=== PATIENT | female | born 1965 | race Caucasian/White ===

== ENCOUNTER 2017-12-07 06:01 | Inpatient (IN) | payer SELFPAY, MEDICAID ==
[2017-12-07] MEDS: GASTROGRAFIN SOLUTION 30ML PO ×2 (08:01→08:31)
[2017-12-07] MEDS: NS 1,000 ML IV ×2 (08:09→08:45)
[2017-12-07] MEDS: KETOROLAC 30 MG/ML VIAL (J1885) IV (08:09)
[2017-12-07] MEDS: ONDANSETRON 4MG/2ML VIAL (J2405) IV ×3 (08:09→23:10)
[2017-12-07 08:21] LABS: BASO % 0.2 % (0.0-1.0); EOS % 0.3 % (0.0-3.0); HEMATOCRIT 41.5 % (36.0-47.0); IMMATURE GRANULOCYTE % 0.4 % (0-3.0); LYMPH # 1.3 10^3/uL (1.5-4.5); LYMPH % 9.1 % (24.0-44.0); MEAN CORPUSCULAR HEMOGLOBIN 33.9 pg (27.0-33.0); MEAN CORPUSCULAR HGB CONC 36.1 g/dl (32.0-36.5); MEAN CORPUSCULAR VOLUME 93.9 fl (80.0-96.0); MONO # 0.9 10^3/uL (0.0-0.8); MONO % 5.9 % (0.0-5.0); NEUTROPHILS # 12.3 10^3/uL (1.8-7.7); NEUTROPHILS % 84.1 % (36.0-66.0); PLATELET COUNT, AUTOMATED 271 10^3/uL (150-450); RED BLOOD COUNT 4.42 10^6/uL (4.00-5.40); RED CELL DISTRIBUTION WIDTH 12.7 % (11.5-14.5); WHITE BLOOD COUNT 14.6 10^3/uL (4.0-10.0)
[2017-12-07 08:50] LABS: LACTIC ACID SEPSIS PROTOCOL 1.2 MMOL/L (0.4-2.0)
[2017-12-07 08:51] LABS: ALBUMIN 3.5 GM/DL (3.2-5.2); ALKALINE PHOSPHATASE 118 U/L (45-117); AMYLASE 184 U/L (25-115); ANION GAP 9 MEQ/L (8-16); AST/SGOT 50 U/L (7-37); BILIRUBIN,TOTAL 0.7 MG/DL (0.2-1.0); BLOOD UREA NITROGEN 7 MG/DL (7-18); C REACTIVE PROTEIN QUANTITATIV 2.42 MG/DL (0.00-0.30); CALCIUM LEVEL 8.6 MG/DL (8.5-10.1); CARBON DIOXIDE LEVEL 24 MEQ/L (21-32); CHLORIDE LEVEL 101 MEQ/L (98-107); CPK CREATINE PHOSPHOKINASE 101 U/L (26-192); CREATININE FOR GFR 0.56 MG/DL (0.55-1.30); GLOMERULAR FILTRATION RATE > 60.0 (>51); GLUCOSE, FASTING 135 MG/DL (70-100); LIPASE 3750 U/L (73-393); POTASSIUM SERUM 3.8 MEQ/L (3.5-5.1); SODIUM LEVEL 134 MEQ/L (136-145); TROPONIN I < 0.02 NG/ML (< 0.10)
[2017-12-07] MEDS ORDERED: ISOVUE-370 76% 100ML VIAL (Q9967) As Ordered (08:56)
[2017-12-07 09:17] LABS: ALT/SGPT 52 U/L (12-78); CK-MB VALUE MASS 1.8 NG/ML (<3.6); MAGNESIUM LEVEL 1.8 MG/DL (1.8-2.4); MB/CK RELATIVE INDEX 1.78 (< OR =4)
[2017-12-07] MEDS: METOCLOPRAMIDE INJ 10MG/2ML VIAL (J2765) IV (10:03)
[2017-12-07] MEDS: MORPHINE 4 MG/ML 1ML VIAL/SYRINGE (J2270) IV ×6 (10:07→23:10)
[2017-12-07] MEDS ORDERED: MORPHINE 4 MG/ML 1ML VIAL/SYRINGE (J2270) IV ×3 (10:15→13:30)
[2017-12-07 10:28] LABS: APPEARANCE, URINE CLEAR (CLEAR); BACTERIA, URINE AUTO NEGATIVE (NEGATIVE); BILIRUBIN, URINE AUTO NEGATIVE (NEGATIVE); BLOOD, URINE BLOOD 1+ (NEGATIVE); COLOR, URINE YELLOW (YELLOW); GLUCOSE, URINE (UA) AUTO 1+ mg/dL (NEGATIVE); KETONE, URINE AUTO 1+ mg/dL (NEGATIVE); LEUKOCYTE ESTERASE, URINE AUTO NEGATIVE (NEGATIVE); MUCUS, URINE SMALL (NEGATIVE); NITRITE, URINE AUTO NEGATIVE (NEGATIVE); PROTEIN, URINE AUTO NEGATIVE (NEGATIVE); RBC, URINE AUTO 1 /HPF (0-3); SPECIFIC GRAVITY URINE AUTO 1.029 (1.002-1.035); SQUAMOUS EPITHELIAL CELL UR AU 2 /HPF (0-6); UROBILINOGEN, URINE AUTO 0.2 mg/dL (0.0-2.0); WBC, URINE AUTO 1 /HPF (0-3)
[2017-12-07] MEDS ORDERED: LORazepam 2 MG TAB PO (11:00)
[2017-12-07] MEDS: NICOTINE 21MG/24HR 1 EA TRANSDERMAL TD (11:39)
[2017-12-07] MEDS: THIAMINE 100 MG TAB PO ×2 (11:39→21:02)
[2017-12-07] MEDS: MULTIVITAMINS/MINERALS THERAP 1 TAB PO (11:39)
[2017-12-07] MEDS: FOLIC ACID 1 MG TAB PO (11:39)
[2017-12-07] MEDS: PANTOPRAZOLE 40MG INJ (PROTONIX) (C9113) IV (11:40)
[2017-12-07] MEDS: ENOXAPARIN 40 MG/0.4 ML SYRINGE (J1650) SC (11:40)
[2017-12-07] MEDS: D5W/0.9% SODIUM CHLORIDE 1,000 ML IV ×2 (11:41→23:11)
[2017-12-08] MEDS: MORPHINE 4 MG/ML 1ML VIAL/SYRINGE (J2270) IV ×6 (02:42→21:34)
[2017-12-08] MEDS: ONDANSETRON 4MG/2ML VIAL (J2405) IV ×3 (05:39→21:34)
[2017-12-08 06:24] LABS: BASO % 0.2 % (0.0-1.0); EOS # 0.1 10^3/uL (0.0-0.50); EOS % 0.3 % (0.0-3.0); HEMATOCRIT 36.3 % (36.0-47.0); IMMATURE GRANULOCYTE % 0.6 % (0-3.0); LYMPH # 1.5 10^3/uL (1.5-4.5); LYMPH % 9.5 % (24.0-44.0); MEAN CORPUSCULAR HEMOGLOBIN 33.5 pg (27.0-33.0); MEAN CORPUSCULAR VOLUME 95.8 fl (80.0-96.0); MONO % 6.3 % (0.0-5.0); NEUTROPHILS # 13.1 10^3/uL (1.8-7.7); NEUTROPHILS % 83.1 % (36.0-66.0); PLATELET COUNT, AUTOMATED 203 10^3/uL (150-450); RED BLOOD COUNT 3.79 10^6/uL (4.00-5.40); RED CELL DISTRIBUTION WIDTH 13.3 % (11.5-14.5); WHITE BLOOD COUNT 15.8 10^3/uL (4.0-10.0)
[2017-12-08 06:29] LABS: HEMOGLOBIN 12.7 g/dl (12.0-15.5)
[2017-12-08 06:47] LABS: AMYLASE 210 U/L (25-115); ANION GAP 8 MEQ/L (8-16); BLOOD UREA NITROGEN 6 MG/DL (7-18); CALCIUM LEVEL 7.8 MG/DL (8.5-10.1); CARBON DIOXIDE LEVEL 26 MEQ/L (21-32); CHLORIDE LEVEL 107 MEQ/L (98-107); CREATININE FOR GFR 0.56 MG/DL (0.55-1.30); GLOMERULAR FILTRATION RATE > 60.0 (>51); GLUCOSE, FASTING 105 MG/DL (70-100); LIPASE 2580 U/L (73-393); POTASSIUM SERUM 3.2 MEQ/L (3.5-5.1); SODIUM LEVEL 141 MEQ/L (136-145)
[2017-12-08] MEDS: MULTIVITAMINS/MINERALS THERAP 1 TAB PO (09:15)
[2017-12-08] MEDS: FOLIC ACID 1 MG TAB PO (09:15)
[2017-12-08] MEDS: THIAMINE 100 MG TAB PO ×2 (09:15→20:31)
[2017-12-08] MEDS: NICOTINE 21MG/24HR 1 EA TRANSDERMAL TD (09:17)
[2017-12-08] MEDS: ENOXAPARIN 40 MG/0.4 ML SYRINGE (J1650) SC (09:17)
[2017-12-08] MEDS: KCL 40MEQ IN D5/NS 1000ML 1,000 ML IV ×2 (11:19→18:26)
[2017-12-08] MEDS: PANTOPRAZOLE 40MG INJ (PROTONIX) (C9113) IV (11:19)
[2017-12-08] MEDS ORDERED: MORPHINE 4 MG/ML 1ML VIAL/SYRINGE (J2270) IV (11:30)
[2017-12-08] MEDS ORDERED: ACETAMINOPHEN 500 MG TAB PO (12:30)
[2017-12-09] MEDS: KCL 40MEQ IN D5/NS 1000ML 1,000 ML IV ×3 (00:45→17:52)
[2017-12-09] MEDS: ONDANSETRON 4MG/2ML VIAL (J2405) IV (03:46)
[2017-12-09] MEDS: MORPHINE 4 MG/ML 1ML VIAL/SYRINGE (J2270) IV ×3 (03:46→21:20)
[2017-12-09 06:07] LABS: BASO % 0.3 % (0.0-1.0); EOS # 0.2 10^3/uL (0.0-0.50); EOS % 1.1 % (0.0-3.0); HEMATOCRIT 32.3 % (36.0-47.0); HEMOGLOBIN 10.9 g/dl (12.0-15.5); IMMATURE GRANULOCYTE % 0.4 % (0-3.0); LYMPH # 1.9 10^3/uL (1.5-4.5); LYMPH % 13.1 % (24.0-44.0); MEAN CORPUSCULAR HEMOGLOBIN 34.2 pg (27.0-33.0); MEAN CORPUSCULAR HGB CONC 33.7 g/dl (32.0-36.5); MEAN CORPUSCULAR VOLUME 101.3 fl (80.0-96.0); MONO % 7.2 % (0.0-5.0); NEUTROPHILS # 11.1 10^3/uL (1.8-7.7); NEUTROPHILS % 77.9 % (36.0-66.0); PLATELET COUNT, AUTOMATED 161 10^3/uL (150-450); RED BLOOD COUNT 3.19 10^6/uL (4.00-5.40); RED CELL DISTRIBUTION WIDTH 13.6 % (11.5-14.5); WHITE BLOOD COUNT 14.3 10^3/uL (4.0-10.0)
[2017-12-09 06:30] LABS: ANION GAP 5 MEQ/L (8-16); BLOOD UREA NITROGEN 5 MG/DL (7-18); CARBON DIOXIDE LEVEL 25 MEQ/L (21-32); CHLORIDE LEVEL 111 MEQ/L (98-107); CREATININE FOR GFR 0.47 MG/DL (0.55-1.30); GLOMERULAR FILTRATION RATE > 60.0 (>51); GLUCOSE, FASTING 109 MG/DL (70-100); LIPASE 166 U/L (73-393); POTASSIUM SERUM 4.2 MEQ/L (3.5-5.1); SODIUM LEVEL 141 MEQ/L (136-145)
[2017-12-09] MEDS: NICOTINE 21MG/24HR 1 EA TRANSDERMAL TD (08:43)
[2017-12-09] MEDS: MULTIVITAMINS/MINERALS THERAP 1 TAB PO (08:44)
[2017-12-09] MEDS: ENOXAPARIN 40 MG/0.4 ML SYRINGE (J1650) SC (08:44)
[2017-12-09] MEDS: FOLIC ACID 1 MG TAB PO (08:44)
[2017-12-09] MEDS: THIAMINE 100 MG TAB PO ×2 (08:44→21:19)
[2017-12-09] MEDS: PANTOPRAZOLE 40MG INJ (PROTONIX) (C9113) IV (11:31)
[2017-12-09] MEDS: PERCOCET 5MG/325MG TAB PO ×2 (12:40→16:36)
[2017-12-10] MEDS: PERCOCET 5MG/325MG TAB PO ×3 (02:29→17:49)
[2017-12-10 06:26] LABS: BASO % 0.3 % (0.0-1.0); EOS # 0.2 10^3/uL (0.0-0.50); EOS % 1.7 % (0.0-3.0); HEMATOCRIT 32.2 % (36.0-47.0); HEMOGLOBIN 10.6 g/dl (12.0-15.5); IMMATURE GRANULOCYTE % 0.7 % (0-3.0); LYMPH # 1.7 10^3/uL (1.5-4.5); LYMPH % 13.4 % (24.0-44.0); MEAN CORPUSCULAR HEMOGLOBIN 33.2 pg (27.0-33.0); MEAN CORPUSCULAR HGB CONC 32.9 g/dl (32.0-36.5); MEAN CORPUSCULAR VOLUME 100.9 fl (80.0-96.0); MONO # 1.1 10^3/uL (0.0-0.8); MONO % 8.3 % (0.0-5.0); NEUTROPHILS # 9.6 10^3/uL (1.8-7.7); NEUTROPHILS % 75.6 % (36.0-66.0); PLATELET COUNT, AUTOMATED 191 10^3/uL (150-450); RED BLOOD COUNT 3.19 10^6/uL (4.00-5.40); RED CELL DISTRIBUTION WIDTH 13.8 % (11.5-14.5); WHITE BLOOD COUNT 12.7 10^3/uL (4.0-10.0)
[2017-12-10 06:45] LABS: ANION GAP 7 MEQ/L (8-16); BLOOD UREA NITROGEN 5 MG/DL (7-18); CALCIUM LEVEL 8.5 MG/DL (8.5-10.1); CARBON DIOXIDE LEVEL 22 MEQ/L (21-32); CHLORIDE LEVEL 112 MEQ/L (98-107); CREATININE FOR GFR 0.41 MG/DL (0.55-1.30); GLOMERULAR FILTRATION RATE > 60.0 (>51); GLUCOSE, FASTING 111 MG/DL (70-100); LIPASE 231 U/L (73-393); POTASSIUM SERUM 4.1 MEQ/L (3.5-5.1); SODIUM LEVEL 141 MEQ/L (136-145)
[2017-12-10] MEDS: KCL 40MEQ IN D5/NS 1000ML 1,000 ML IV (06:56)
[2017-12-10] MEDS: MULTIVITAMINS/MINERALS THERAP 1 TAB PO (08:22)
[2017-12-10] MEDS: ENOXAPARIN 40 MG/0.4 ML SYRINGE (J1650) SC (08:22)
[2017-12-10] MEDS: FOLIC ACID 1 MG TAB PO (08:22)
[2017-12-10] MEDS: NICOTINE 21MG/24HR 1 EA TRANSDERMAL TD (08:22)
[2017-12-10] MEDS: PANTOPRAZOLE 40MG INJ (PROTONIX) (C9113) IV (11:12)
[2017-12-10] MEDS: ALBUTEROL SULFATE 2.5 MG/0.5 ML INH NEB SOLN NEB (11:19)
[2017-12-10] MEDS: MORPHINE 4 MG/ML 1ML VIAL/SYRINGE (J2270) IV ×2 (13:42→22:27)
[2017-12-11] MEDS: PERCOCET 5MG/325MG TAB PO ×3 (06:29→19:18)
[2017-12-11 06:38] LABS: BASO % 0.4 % (0.0-1.0); EOS # 0.2 10^3/uL (0.0-0.50); HEMATOCRIT 29.7 % (36.0-47.0); HEMOGLOBIN 9.9 g/dl (12.0-15.5); IMMATURE GRANULOCYTE % 0.7 % (0-3.0); LYMPH # 1.3 10^3/uL (1.5-4.5); LYMPH % 13.3 % (24.0-44.0); MEAN CORPUSCULAR HEMOGLOBIN 33.4 pg (27.0-33.0); MEAN CORPUSCULAR HGB CONC 33.3 g/dl (32.0-36.5); MEAN CORPUSCULAR VOLUME 100.3 fl (80.0-96.0); MONO # 1.4 10^3/uL (0.0-0.8); MONO % 14.3 % (0.0-5.0); NEUTROPHILS # 6.5 10^3/uL (1.8-7.7); NEUTROPHILS % 69.3 % (36.0-66.0); PLATELET COUNT, AUTOMATED 242 10^3/uL (150-450); RED BLOOD COUNT 2.96 10^6/uL (4.00-5.40); RED CELL DISTRIBUTION WIDTH 13.8 % (11.5-14.5); WHITE BLOOD COUNT 9.4 10^3/uL (4.0-10.0)
[2017-12-11 06:54] LABS: ANION GAP 7 MEQ/L (8-16); BLOOD UREA NITROGEN 5 MG/DL (7-18); CALCIUM LEVEL 8.6 MG/DL (8.5-10.1); CARBON DIOXIDE LEVEL 26 MEQ/L (21-32); CHLORIDE LEVEL 108 MEQ/L (98-107); CREATININE FOR GFR 0.35 MG/DL (0.55-1.30); GLOMERULAR FILTRATION RATE > 60.0 (>51); GLUCOSE, FASTING 92 MG/DL (70-100); LIPASE 183 U/L (73-393); POTASSIUM SERUM 3.8 MEQ/L (3.5-5.1); SODIUM LEVEL 141 MEQ/L (136-145)
[2017-12-11] MEDS: ENOXAPARIN 40 MG/0.4 ML SYRINGE (J1650) SC (08:09)
[2017-12-11] MEDS: MULTIVITAMINS/MINERALS THERAP 1 TAB PO (08:09)
[2017-12-11] MEDS: FOLIC ACID 1 MG TAB PO (08:09)
[2017-12-11] MEDS: NICOTINE 21MG/24HR 1 EA TRANSDERMAL TD (10:02)
[2017-12-11] MEDS: PANTOPRAZOLE 40MG INJ (PROTONIX) (C9113) IV (10:47)
[2017-12-11] MEDS: SENOKOT S TAB PO ×2 (10:47→20:41)
[2017-12-11] MEDS: FUROSEMIDE 40 MG/4 ML VIAL (J1940) IV (10:48)
[2017-12-11] MEDS: ONDANSETRON 4MG/2ML VIAL (J2405) IV (20:41)
[2017-12-12] MEDS: PERCOCET 5MG/325MG TAB PO ×3 (05:54→19:45)
[2017-12-12 06:00] LABS: BASO % 0.4 % (0.0-1.0); EOS # 0.2 10^3/uL (0.0-0.50); HEMOGLOBIN 11.3 g/dl (12.0-15.5); IMMATURE GRANULOCYTE % 0.9 % (0-3.0); LYMPH # 1.3 10^3/uL (1.5-4.5); LYMPH % 14.6 % (24.0-44.0); MEAN CORPUSCULAR HEMOGLOBIN 33.2 pg (27.0-33.0); MEAN CORPUSCULAR HGB CONC 33.2 g/dl (32.0-36.5); MONO # 1.1 10^3/uL (0.0-0.8); MONO % 12.6 % (0.0-5.0); NEUTROPHILS # 6.3 10^3/uL (1.8-7.7); NEUTROPHILS % 69.5 % (36.0-66.0); PLATELET COUNT, AUTOMATED 333 10^3/uL (150-450); RED CELL DISTRIBUTION WIDTH 13.8 % (11.5-14.5)
[2017-12-12 06:19] LABS: ANION GAP 8 MEQ/L (8-16); BLOOD UREA NITROGEN 7 MG/DL (7-18); CALCIUM LEVEL 9.2 MG/DL (8.5-10.1); CARBON DIOXIDE LEVEL 30 MEQ/L (21-32); CHLORIDE LEVEL 102 MEQ/L (98-107); CREATININE FOR GFR 0.42 MG/DL (0.55-1.30); GLOMERULAR FILTRATION RATE > 60.0 (>51); GLUCOSE, FASTING 95 MG/DL (70-100); LIPASE 171 U/L (73-393); SODIUM LEVEL 140 MEQ/L (136-145)
[2017-12-12] MEDS: SENOKOT S TAB PO ×2 (08:22→20:39)
[2017-12-12] MEDS: MULTIVITAMINS/MINERALS THERAP 1 TAB PO (08:22)
[2017-12-12] MEDS: FOLIC ACID 1 MG TAB PO (08:22)
[2017-12-12] MEDS: NICOTINE 21MG/24HR 1 EA TRANSDERMAL TD (08:23)
[2017-12-12] MEDS: ENOXAPARIN 40 MG/0.4 ML SYRINGE (J1650) SC (08:23)
[2017-12-12] MEDS: PANTOPRAZOLE 40MG INJ (PROTONIX) (C9113) IV (11:07)
[2017-12-12] MEDS: POTASSIUM CHLORIDE 10 MEQ SR TABLET PO (13:13)
[2017-12-12] MEDS: ONDANSETRON 4MG/2ML VIAL (J2405) IV ×2 (13:14→19:44)
[2017-12-12] MEDS: ONDANSETRON 4 MG TAB (S0181) PO (20:39)
[2017-12-12 21:27] LABS: MAGNESIUM LEVEL 1.9 MG/DL (1.8-2.4)
[2017-12-12 21:27] LABS: POTASSIUM SERUM 3.7 MEQ/L (3.5-5.1)
[2017-12-13] MEDS: PERCOCET 5MG/325MG TAB PO ×2 (01:44→08:24)
[2017-12-13] MEDS: ONDANSETRON 4 MG TAB (S0181) PO ×2 (01:44→08:24)
[2017-12-13 06:48] LABS: BASO # 0.1 10^3/uL (0.0-0.2); BASO % 0.5 % (0.0-1.0); EOS # 0.2 10^3/uL (0.0-0.50); EOS % 2.2 % (0.0-3.0); HEMOGLOBIN 9.8 g/dl (12.0-15.5); IMMATURE GRANULOCYTE % 0.9 % (0-3.0); LYMPH # 1.7 10^3/uL (1.5-4.5); LYMPH % 18.1 % (24.0-44.0); MEAN CORPUSCULAR HGB CONC 33.8 g/dl (32.0-36.5); MEAN CORPUSCULAR VOLUME 97.6 fl (80.0-96.0); MONO # 1.1 10^3/uL (0.0-0.8); MONO % 11.8 % (0.0-5.0); NEUTROPHILS # 6.1 10^3/uL (1.8-7.7); NEUTROPHILS % 66.5 % (36.0-66.0); PLATELET COUNT, AUTOMATED 398 10^3/uL (150-450); RED BLOOD COUNT 2.97 10^6/uL (4.00-5.40); RED CELL DISTRIBUTION WIDTH 13.3 % (11.5-14.5); WHITE BLOOD COUNT 9.2 10^3/uL (4.0-10.0)
[2017-12-13 07:13] LABS: ANION GAP 7 MEQ/L (8-16); BLOOD UREA NITROGEN 11 MG/DL (7-18); CALCIUM LEVEL 8.9 MG/DL (8.5-10.1); CARBON DIOXIDE LEVEL 29 MEQ/L (21-32); CHLORIDE LEVEL 103 MEQ/L (98-107); CREATININE FOR GFR 0.39 MG/DL (0.55-1.30); GLOMERULAR FILTRATION RATE > 60.0 (>51); GLUCOSE, FASTING 107 MG/DL (70-100); LIPASE 199 U/L (73-393); POTASSIUM SERUM 3.4 MEQ/L (3.5-5.1); SODIUM LEVEL 139 MEQ/L (136-145)
[2017-12-13] MEDS: SENOKOT S TAB PO (08:23)
[2017-12-13] MEDS: NICOTINE 21MG/24HR 1 EA TRANSDERMAL TD (08:23)
[2017-12-13] MEDS: POTASSIUM CHLORIDE 10 MEQ SR TABLET PO (08:24)
[2017-12-13] MEDS: FOLIC ACID 1 MG TAB PO (08:24)
[2017-12-13] MEDS: MULTIVITAMINS/MINERALS THERAP 1 TAB PO (08:24)
[2017-12-13] MEDS: ENOXAPARIN 40 MG/0.4 ML SYRINGE (J1650) SC (08:25)
== END 2017-12-13 09:30 | disposition home or self-care (01) | DRG 282 ==
LOC: M MS4PR 12-12 20:20 → M ED 06:01 → M ED INP 10:15 → M PED 11:06 → M MSPAV 14:16
DX: K85.20 Alcohol induced acute pancreatitis without necrosis or infection (principal); F17.200 Nicotine dependence, unspecified, uncomplicated

== ENCOUNTER 2018-09-03 06:46 | Inpatient (IN) | payer OTHER, SELFPAY ==
[~2018-09-03] VITALS: Ht 167.6 cm; Wt 66.6 kg
[~2018-09-03 06:46] MED LIST: IBUP-1114 PO; NICO21PAT TD; PERCOCET PO
[2018-09-03] MEDS ORDERED: LOPE2CAP PO (06:55)
[2018-09-03] MEDS ORDERED: ONDANSETRON 4MG/2ML VIAL (J2405) IV ONE (07:15)
[2018-09-03] MEDS ORDERED: KETOROLAC 30 MG/ML VIAL (J1885) IV ONE (07:15)
[2018-09-03] MEDS ORDERED: NS 1,000 ML IV ONE (07:15)
[2018-09-03 07:36] LABS: BASO # 0.1 10^3/uL (0.0-0.2); BASO % 0.4 % (0.0-1.0); EOS # 0.1 10^3/uL (0.0-0.50); EOS % 0.9 % (0.0-3.0); HEMATOCRIT 44.2 % (36.0-47.0); HEMOGLOBIN 15.2 g/dl (12.0-15.5); LYMPH # 1.7 10^3/uL (1.5-4.5); LYMPH % 10.5 % (24.0-44.0); MEAN CORPUSCULAR HEMOGLOBIN 32.5 pg (27.0-33.0); MEAN CORPUSCULAR HGB CONC 34.4 g/dl (32.0-36.5); MEAN CORPUSCULAR VOLUME 94.4 fl (80.0-96.0); MONO # 0.9 10^3/uL (0.0-0.8); MONO % 5.4 % (0.0-5.0); NEUTROPHILS # 13.2 10^3/uL (1.8-7.7); NEUTROPHILS % 82.4 % (36.0-66.0); PLATELET COUNT, AUTOMATED 347 10^3/uL (150-450); RED BLOOD COUNT 4.68 10^6/uL (4.00-5.40)
[2018-09-03 08:02] LABS: ALBUMIN 4.1 GM/DL (3.2-5.2); ALT/SGPT 35 U/L (12-78); AMYLASE 211 U/L (25-115); BILIRUBIN,DIRECT 0.1 MG/DL (0.0-0.2); BILIRUBIN,TOTAL 0.7 MG/DL (0.2-1.0); BLOOD UREA NITROGEN 12 MG/DL (7-18); CALCIUM LEVEL 9.2 MG/DL (8.5-10.1); CARBON DIOXIDE LEVEL 24 MEQ/L (21-32); CHLORIDE LEVEL 104 MEQ/L (98-107); GLOMERULAR FILTRATION RATE > 60.0 (>51); GLUCOSE, FASTING 120 MG/DL (70-100); LIPASE 2058 U/L (73-393); POTASSIUM SERUM 4.1 MEQ/L (3.5-5.1); SODIUM LEVEL 136 MEQ/L (136-145); TOTAL PROTEIN 8.1 GM/DL (6.4-8.2)
[2018-09-03] MEDS ORDERED: ISOVUE-370 76% 100ML VIAL (Q9967) As Ordered ONE (08:16)
[2018-09-03] MEDS ORDERED: MORPHINE 2 MG/ML 1ML SYRINGE (J2270) IV ONE (09:15)
--- NOTE | 2018-09-03 09:36 | REP ---
CT ABDOMEN AND PELVIS WITH IV CONTRAST: TECHNIQUE: Axial contrast enhanced images from the lung bases to the pubic symphysis using 100 mL Isovue 370 intravenous contrast material with multiplanar reformations. COMPARISON: 12/07/2017 In the visualized lung bases there is mild bibasilar atelectasis/infiltrate. There is a tiny calcified granuloma in the left lower lobe. The liver, spleen, and adrenals are unremarkable in appearance. Subcentimeter cyst is seen in the right kidney. There is no hydronephrosis. Diffuse mild inflammatory changes are seen surrounding the pancreas compatible with pancreatitis. Common bile duct measures 7 mm at the upper limits of normal. The pancreatic duct does not appear to be dilated. Rounded low density structure posterior to the body of the pancreas measures 2.3 cm in diameter slightly increased in size since prior study when it was 2 cm likely representing a complex pseudocyst. There is no abdominal aortic aneurysm with mild scattered atherosclerotic calcification. I see no adenopathy. There is no free air or significant ascites. No bowel abnormality is seen. There is no evidence of appendicitis. No pelvis mass is seen. Urinary bladder is not well distended and not well evaluated. IMPRESSION: Findings compatible with pancreatitis. No free air and no significant ascites. Rounded hypodense structure posterior to the body of the pancreas has slightly increased in size since 12/07/2017, 2.3 cm in diameter, likely representing a complex pseudocyst. Mild infiltrate/atelectasis in each lung base. Electronically Signed by Ismael Sampson MD 09/03/2018 04:21 P
[2018-09-03] MEDS: NS 1,000 ML IV SCH ×4 (10:07→23:21)
[2018-09-03] MEDS ORDERED: LORazepam 2 MG TAB PO PRN (10:15)
[2018-09-03] MEDS: MULTIVITAMINS/MINERALS THERAP 1 TAB PO SCH (11:11)
[2018-09-03] MEDS: FOLIC ACID 1 MG TAB PO SCH (11:11)
[2018-09-03] MEDS: THIAMINE 100 MG TAB PO SCH (11:11)
[2018-09-03 11:40] VITALS: BP 163/80
[2018-09-03] MEDS ORDERED: PROCHLORPERAZINE 10 MG/2 ML VIAL (J0780) IV PRN (12:00)
[2018-09-03] MEDS: MORPHINE 4 MG/ML 1ML VIAL/SYRINGE (J2270) IV PRN ×6 (12:02→23:21)
[2018-09-03] MEDS ORDERED: OXAZEPAM 15 MG CAP PO SCH (14:00)
[2018-09-03 14:25] VITALS: BP 148/79
[2018-09-03 14:36] VITALS: BP 148/79
[2018-09-03] MEDS ORDERED: NYSTATIN 500,000 U/5 ML SUSP UDC SSP PRN (14:45)
--- NOTE | 2018-09-03 14:54 | HPEPDOC ---
[facility] Medical History & Physical Date of Admission Sep 03, 2018 Attending Physician: DION KRISHNAMURTHY MD History and Physical CHIEF COMPLAINT: Nausea, Vomiting, abdominal pain HISTORY OF PRESENT ILLNESS: Patient is a 53 year old female with a past medical history significant for alcohol abuse, tobacco abuse, and history of panc reatitis who presented to the [facility] emergency department with complaint of nausea, vomiting and abdominal pain over the past 48 hours. Patient stated that on Monday08/31/2018 she had drank a bottle of wine. She stated that after doing do she began to develop some abdominal pain. She stated that at first it was manageable however continued to worsen. The patient states that she has had pancreatitis in the past and felt this was similar to her past experiences with pancreatitis. Patient stopped eating food as she had hoped that this would make the pain subside. Unfortunately, her pain continued and worsened. Today she states that she can no get comfortable. She states that the pain makes her nauseas and unable to eat. For this reason she felt she should go to the ER. In the ER, the patient received Zofran for her nausea and morphine for her pain. She recieved blood chemistries which demonstrated a lipase of 2057. In addition, she received a CT abdomen which demonstrated findings consistent with pancreatitis. In addition, she was found to have a structure by the body of the pancreas that is consistent with a complex pseudocyst. The patient was subsequently admitted to hospitalist service for further management. PAST MEDICAL HISTORY: 1. Hx of Pancreatitis 2. Alcoholism 3. Tobacco Abuse 4. History of IV drug use PAST SURGICAL HISTORY: None SOCIAL HISTORY: Patient currently lives with her sister. She is a smoker. She smokes approximately 1 pack a day for the past 40 years. She has a history of alcohol abuse with binge drinking. She is a former IV drug user but states she has not used in over 13 years. She currently works for [employer]. She denies a [place] sick contacts or recent travel FAMILY HISTORY: Patients mother has a history of diabetes and from a myocardial infarction at the age of 62. The patients father is currently living and is an alcoholic. She has not been in contact with her father for sometime and does not know his family history ALLERGIES: Please see below. REVIEW OF SYSTEMS: CONSTITUTIONAL: Denies fevers, chills, unintentional weightloss or weightgain HEENT: Admits to cough and sputum production. Denies sore throat or dysphagia CARDIOVASCULAR: Denies chest pain, palpitations or feelings of the heart racing RESPIRATORY: Admits to cough. Denies shortness of breath. Denies hemoptysis GASTROINTESTINAL: Admits to abdominal pain 10 located LUQ, RUQ, and epigastric. Admits to diarrhea 1 week ago. Denies bloody stool. GENITOURINARY: Denies dysuria or increased frequency SKIN: Denies rashes or lesions MUSCULOSKELETAL: Denies musculoskeletal pain NEUROLOGICAL: Denies changes in gait or balance PSYCHIATRIC: Denies depression or anxiety HEMATOLOGIC/LYMPHATIC: Denies easy bruising or bleeding HOME MEDICATIONS: Please see below. PHYSICAL EXAMINATION: VITAL SIGNS: Temperature 97.4, pulse 71, respiratory rate 20, blood pressure 148/79, pulse oximetry 100% on room air. GENERAL APPEARANCE: Patient is awake, alert, and oriented. She is standing in exam room holding her stomach. She appears in no acute distress although uncomfortable HEENT: Atraumatic normocephalic. Eyes are nonicteric. Trachea is midline. Dentition is poor. Upper dentures in place. White patches present on patients tongue. Reddened areas with scraping with tongue depressor CARDIOVASCULAR: Normal S1, S2. Regular rate and rhythm. No clicks rubs, or murmurs appreciated LUNGS: Clear vesicular lung sounds bilaterally. Good respiratory effort. Slightly prolonged expiratory phase. No wheezes, rhonci, or rales ABDOMEN: Soft, nondistended. Tenderness to palpation in LUQ, RUQ, and epigastric region. No rebound tenderness. Positive bowel sounds. No hernias or rashes EXTREMITIES: No edema. 2+ posterior tibial pulses and radial pulses bilaterally. NEUROLOGICAL: No focal neurological deficits PSYCHIATRIC: Mood and affect appear appropriate LABORATORY DATA: See below. IMAGING: CT ABDOMEN AND PELVIS WITH IV CONTRAST: TECHNIQUE: Axial contrast enhanced images from the lung bases to the pubic symphysis using 100 mL Isovue 370 intravenous contrast material with multiplanar reformations. COMPARISON: 12/07/2017 In the visualized lung bases there is mild bibasilar atelectasis/infiltrate. There is a tiny calcified granuloma in the left lower lobe. The liver, spleen, and adrenals are unremarkable in appearance. Subcentimeter cyst is seen in the right kidney. There is no hydronephrosis. Diffuse mild inflammatory changes are seen surrounding the pancreas compatible with pancreatitis. Common bile duct measures 7 mm at the upper limits of normal. The pancreatic duct does not appear to be dilated. Rounded low density structure posterior to the body of the pancreas measures 2.3 cm in diameter slightly increased in size since prior study when it was 2 cm likely representing a complex pseudocyst. There is no abdominal aortic aneurysm with mild scattered atherosclerotic calcification. I see no adenopathy. There is no free air or significant ascites. No bowel abnormality is seen. There is no evidence of appendicitis. No pelvis mass is seen. Urinary bladder is not well distended and not well evaluated. IMPRESSION: Findings compatible with pancreatitis. No free air and no significant ascites. Rounded hypodense structure posterior to the body of the pancreas has slightly increased in size since 12/07/2017, 2.3 cm in diameter, likely representing a complex pseudocyst. Mild infiltrate/atelectasis in each lung base. MICROBIOLOGY: Please see below. ASSESSMENT: patient is a 53 year old male with a past medical history significant for alcoholism, pancreatitis, and tobacco abuse who presented to the [facility] ER with complaint of abdominal pain, nausea, and vomiting after drinking a bottle of wine on Monday. Patient had developed the pain after drinking and has attempted to manage her pain by not eating. Her pain worsened and she presented to the [facility] ER where she was found to have an elevated lipase and CT imaging suggestive of acute pancreatits. She was admitted to hospitalist service for further management and care of her pancreatitis . PLAN: 1. Acute on chronic pancreatitis -Patient received CT imaging of the abdomen demonstrating likely pancreatitis. -Patient has been made NPO. -Zofran and Compazine for nausea -Morphine for pain control with plan to transition to PO when tolerating diet -CT imaging demonstrated a structure by the patients pancreas consistent with a complex pseudocyst. Patient will likely need follow-up imaging at intervals for longterm management 2. History of alcohol abuse -Patient is an alcoholic. She states that she does binge drink at time -Serax 10 mg TID. -CIWA protocol with Ativan prn protocol -Folic acid, thiamine, and multivitamins 3. History of Tobacco abuse -Patient is a current smoker. She smokes 1 pack a day for the past 40 years -Nicotine patch 21mg daily 4. DVT prophylaxis -Lovenox 40 Vital Signs Vital Signs Date Time Temp Pulse Resp B/P (MAP) Pulse Ox O2 Delivery O2 Flow Rate FiO2 09/03/18 14:10 22 09/03/18 11:40 74 163/80 09/03/18 11:40 96.4 98 09/03/18 06:47 Room Air Laboratory Data Labs 24H Laboratory Tests 2 09/03/18 07:23: Immature Granulocyte % (Auto) 0.4, White Blood Count 16.0H, Red Blood Count 4.68, Hemoglobin 15.2, Hematocrit 44.2, Mean Corpuscular Volume 94.4, Mean Corpuscular Hemoglobin 32.5, Mean Corpuscular Hemoglobin Concent 34.4, Red Cell Distribution Width 13.3, Platelet Count 347, Neutrophils (%) (Auto) 82.4H, Lymphocytes (%) (Auto) 10.5L, Monocytes (%) (Auto) 5.4H, Eosinophils (%) (Auto) 0.9, Basophils (%) (Auto) 0.4, Neutrophils # (Auto) 13.2H, Lymphocytes # (Auto) 1.7, Monocytes # (Auto) 0.9H, Eosinophils # (Auto) 0.1, Basophils # (Auto) 0.1, Nucleated Red Blood Cells % (auto) 0.0, Urine Color ANKIT, Urine Appearance CLOUDYH, Urine pH 5.0, Urine Specific [place] 1.028, Urine Protein 2+H, Urine Glucose (UA) NEGATIVE, Urine Ketones 2+H, Urine Blood 2+H, Urine Nitrite NEGATIVE, Urine Bilirubin 1+H, Urine Urobilinogen 2.0H, Urine Leukocyte Esterase 2+H, Urine WBC (Auto) 15H, Urine RBC (Auto) 5H, Urine Hyaline Casts (Auto) 2, Urine Bacteria (Auto) 1+H, Urine Squamous Epithelial Cells 7, Urine Transitional Epithelial Cells 1, Urine Mucus (Auto) MODERATE, Urine Sperm (Auto) , Anion Gap 8, Glomerular Filtration Rate > 60.0, Calcium Level 9.2, Aspartate Amino Transf (AST/SGOT) 28, Alanine Aminotransferase (ALT/SGPT) 35, Alkaline Phosphatase 110, Total Bilirubin 0.7, Direct Bilirubin 0.1, Total Protein 8.1, Albumin 4.1, Albumin/Globulin Ratio 1.03, Amylase Level 211H, Lipase 2058H CBC/BMP Laboratory Tests 09/03/18 07:23 Red Blood Count 4.68, Mean Corpuscular Volume 94.4, Mean Corpuscular Hemoglobin 32.5, Mean Corpuscular Hemoglobin Concent 34.4, Red Cell Distribution Width 13.3, Neutrophils (%) (Auto) 82.4 H, Lymphocytes (%) (Auto) 10.5 L, Monocytes (%) (Auto) 5.4 H, Eosinophils (%) (Auto) 0.9, Basophils (%) (Auto) 0.4, Neutrophils # (Auto) 13.2 H, Lymphocytes # (Auto) 1.7, Monocytes # (Auto) 0.9 H, Eosinophils # (Auto) 0.1, Basophils # (Auto) 0.1 Microbiology Microbiology 09/03/18 Urine Culture, Received Pending Home Medications Scheduled PRN Oxycodone HCl/Acetaminophen (Oxycodone-Acetaminophen 5-325) 1 Each Tablet, 1 TAB PO TIDP PRN for pain Allergies Coded Allergies: Penicillins (Verified Allergy, Intermediate, SWELLING OF TONGUE, 09/03/18) A-FIB/CHADSVASC A-FIB History Current/History of A-Fib/PAF?: No GME ATTESTATION GME ATTESTATION My faculty preceptor for this patient encounter was physically present during the encounter and was fully available. All aspects of the patient interview, examination, medical decision making process, and medical care plan development were reviewed and approved by the faculty preceptor. The faculty preceptor is aware and concurs with the plan as stated in the body of this note and will attest to such by his/her cosignature. ATTENDING NOTE I have reviewed the residents note and have personally examined the patient. I agree with the Residents physical examination and assessment and plan. ISHAAN GONZALEZ DO Sep 03, 2018 14:54 DION KRISHNAMURTHY MD September 08, 2018 17:23
[2018-09-03] MEDS: ONDANSETRON 4MG/2ML VIAL (J2405) IV PRN ×2 (15:01→21:12)
[2018-09-03] MEDS: OXAZEPAM 10 MG CAP PO SCH (21:13)
[2018-09-03 22:00] VITALS: BP 139/71
[2018-09-04] MEDS: MORPHINE 4 MG/ML 1ML VIAL/SYRINGE (J2270) IV PRN ×8 (01:49→19:54)
[2018-09-04] MEDS: ONDANSETRON 4MG/2ML VIAL (J2405) IV PRN ×2 (04:06→19:53)
[2018-09-04] MEDS: NS 1,000 ML IV SCH ×4 (04:12→21:40)
[2018-09-04 06:00] VITALS: BP 134/66
[2018-09-04] MEDS: OXAZEPAM 10 MG CAP PO SCH (06:14)
[2018-09-04 06:22] LABS: HEMATOCRIT 34.6 % (36.0-47.0); MEAN CORPUSCULAR HEMOGLOBIN 32.3 pg (27.0-33.0); MEAN CORPUSCULAR HGB CONC 34.4 g/dl (32.0-36.5); RED BLOOD COUNT 3.68 10^6/uL (4.00-5.40); WHITE BLOOD COUNT 16.8 10^3/uL (4.0-10.0)
[2018-09-04 06:29] LABS: HEMOGLOBIN 11.9 g/dl (12.0-15.5); PLATELET COUNT, AUTOMATED 241 10^3/uL (150-450)
[2018-09-04 06:53] LABS: BLOOD UREA NITROGEN 4 MG/DL (7-18); CALCIUM LEVEL 8.1 MG/DL (8.5-10.1); CARBON DIOXIDE LEVEL 23 MEQ/L (21-32); CHLORIDE LEVEL 106 MEQ/L (98-107); CREATININE FOR GFR 0.37 MG/DL (0.55-1.30); GLOMERULAR FILTRATION RATE > 60.0 (>51); GLUCOSE, FASTING 79 MG/DL (70-100); POTASSIUM SERUM 3.4 MEQ/L (3.5-5.1); SODIUM LEVEL 137 MEQ/L (136-145)
[2018-09-04 08:00] VITALS: BP 145/70
[2018-09-04] MEDS: ENOXAPARIN 40 MG/0.4 ML SYRINGE (J1650) SC SCH (08:31)
[2018-09-04] MEDS: THIAMINE 100 MG TAB PO SCH (08:34)
[2018-09-04] MEDS: NICOTINE 21MG/24HR 1 EA TRANSDERMAL TD SCH (08:34)
[2018-09-04] MEDS: FOLIC ACID 1 MG TAB PO SCH (08:34)
[2018-09-04] MEDS: MULTIVITAMINS/MINERALS THERAP 1 TAB PO SCH (08:34)
[2018-09-04] MEDS ORDERED: FLUBLOK(EGG FREE)(QUAD)INFLUENZA VACC 0.5ML SYRINGE (90682)18YRS&OLDER IM ONE (09:00)
[2018-09-04 10:06] LABS: MAGNESIUM LEVEL 1.8 MG/DL (1.8-2.4)
[2018-09-04] MEDS ORDERED: MAG SULF 1GM/100ML (MAG RUN) 1 GM in APPROPRIATE DILUENT 1 EA IV ONE (12:00)
[2018-09-04] MEDS: KCL 10MEQ/100ML SWI (KRUN) 10 MEQ in APPROPRIATE DILUENT 1 EA IV SCH ×2 (12:41→13:56)
--- NOTE | 2018-09-04 13:05 | IPNPDOC ---
Date Seen The patient was seen on 09/04/18. Progress Note SUBJECTIVE: Patient was seen and examined this morning. She states that she continues to have pain. She has been taking IV morphine Q2H. The patient states that she has an appetite however, her pain continues to persist. Her family had requested a pain medicine consult as they do not feel her pain is adequately controlled OBJECTIVE PHYSICAL EXAMINATION: VITAL SIGNS: Please see below. GENERAL: Awake alert and oriented. She does not appear in acute distress. She is sitting up in bed and conversive. She ambulates around the room at times during examination HEENT: Atraumatic normocephalic. Trachea is midline. Mucous membranes are pink and moist. Eyes are nonicteric. Dentition is fair CARDIOVASCULAR: Normal S1, S2. Regular rate and rhythm. No clicks, rubs, or murmurs RESPIRATORY: Clear vesicular lung sounds bilaterally with good respiratory effort. No wheezes, rhonci, or rales ABDOMINAL: Soft, nondistended. Tenderness to palpation of all 4 quadrants. No rebound tenderness or guarding EXTREMITIES: No edema. Full and equal pulses in bilateral lower extremities NEUROLOGICAL: No focal neurological deficits noted PSYCHOLOGICAL: Mood and affect appear appropriate for situation LABORATORY DATA, IMAGING STUDIES, MICROBIOLOGY: Please see below. DVT prophylaxis ordered?: YES ASSESSMENT AND PLAN: Patient is a 53 year old male with a past medical history significant for alcoholism, pancreatitis, and tobacco abuse who presented to the [facility] ER with complaint of abdominal pain, nausea, and vomiting after drinking a bottle of wine on Monday. Patient had developed the pain after drinking and has attempted to manage her pain by not eating. Her pain worsened and she presented to the [facility] ER where she was found to have an elevated lipase and CT imaging suggestive of acute pancreatits. She was admitted to hospitalist service for further management and care of her pancreatitis PROBLEMS: 1. Acute on Chronic Pancreatitis -Patient has a history of pancreatitis with current CT imaging and laboratory findings to support her diagnosis -Patient will be continued on NPO -Patient has Zofran and Compazine for nausea -Patient has been receiving Morphine 4mg Q2H for pain control. She states that her pain is not adequately controlled. The patient is able to ambulate without difficulty. She also expresses that she has an appetite. The patient does have a history of drug abuse in the past. Will plan to change lead to PO pain medication once patient can tolerate PO. At that point all IV medications will be discontinued. Pain management consult has been placed for further re commendations 2. History of Alcohol Abuse -Patient has a history of alcohol abuse. She states her last drink was on Monday before her pain started. She had been receiving Serax 10 mg TID. Patient has had no signs of withdrawl over the past 24 hours. Will discontinue at this time -Patient will be continued on CIWA protocol with Ativan PRN per protocol -Folic acid, Thiamine, and Multivitamins 3. History of Tobacco abuses -Patient is a current smoker. Smokes 1 pack per day for past 40 years -Continue Nicotine patch 21 mg daily A-FIB/CHADSVASC A-FIB History Current/History of A-Fib/PAF?: No VS, I&O, 24H, Fishbone Vital Signs/I&O Vital Signs Date Time Temp Pulse Resp B/P (MAP) Pulse Ox O2 Delivery O2 Flow Rate FiO2 09/04/18 11:29 18 09/04/18 08:00 82 145/70 09/04/18 06:00 97.8 96 09/03/18 06:47 Room Air I&O- Last 24 Hours up to 6 AM 09/04/18 06:00 Intake Total 3100 ml Output Total 2750 ml Balance 350 ml Laboratory Data 24H LABS Laboratory Tests 2 09/04/18 06:07: Nucleated Red Blood Cells % (auto) 0.0, Anion Gap 8, Glomerular Filtration Rate > 60.0, Blood Urea Nitrogen 4#L, Creatinine 0.37L, Sodium Level 137, Potassium Level 3.4L, Chloride Level 106, Carbon Dioxide Level 23, Calcium Level 8.1L, Magnesium Level 1.8 CBC/BMP Laboratory Tests 09/04/18 06:07 Red Blood Count 3.68 L, Mean Corpuscular Volume 94.0, Mean Corpuscular Hemoglobin 32.3, Mean Corpuscular Hemoglobin Concent 34.4, Red Cell Distribution Width 13.3, Calcium Level 8.1 L Microbiology Microbiology 09/03/18 Urine Culture - Final, Complete GME ATTESTATION GME ATTESTATION My faculty preceptor for this patient encounter was physically present during the encounter and was fully available. All aspects of the patient interview, examination, medical decision making process, and medical care plan development were reviewed and approved by the faculty preceptor. The faculty preceptor is aware and concurs with the plan as stated in the body of this note and will attest to such by his/her cosignature. ATTENDING NOTE I saw and evaluated the patient. I agree with the findings and plan of care as documented in the resident's note ISHAAN GONZALEZ DO Sep 04, 2018 13:05 VIRGIL MURPHY MD September 05, 2018 16:25
[2018-09-04 14:00] VITALS: BP 139/67
[2018-09-04 15:00] VITALS: BP 139/67
[2018-09-04] MEDS ORDERED: ACETAMINOPHEN TAB 650MG DOSE (2X325MG) PO ONE (16:30)
[2018-09-04 22:00] VITALS: BP 117/71
[2018-09-04 23:00] VITALS: BP 117/71
[2018-09-05] VITALS (7 sets, daily range): BP systolic 102–122; BP diastolic 55–65
[2018-09-05] MEDS: MORPHINE 4 MG/ML 1ML VIAL/SYRINGE (J2270) IV PRN ×4 (00:09→09:04)
[2018-09-05] MEDS: NS 1,000 ML IV SCH ×2 (02:23→06:43)
[2018-09-05] MEDS: ONDANSETRON 4MG/2ML VIAL (J2405) IV PRN (04:04)
[2018-09-05 06:17] LABS: HEMATOCRIT 30.8 % (36.0-47.0); HEMOGLOBIN 10.1 g/dl (12.0-15.5); MEAN CORPUSCULAR HEMOGLOBIN 32.2 pg (27.0-33.0); MEAN CORPUSCULAR HGB CONC 32.8 g/dl (32.0-36.5); MEAN CORPUSCULAR VOLUME 98.1 fl (80.0-96.0); PLATELET COUNT, AUTOMATED 219 10^3/uL (150-450); RED BLOOD COUNT 3.14 10^6/uL (4.00-5.40); WHITE BLOOD COUNT 14.3 10^3/uL (4.0-10.0)
[2018-09-05 07:56] LABS: BLOOD UREA NITROGEN 5 MG/DL (7-18); CALCIUM LEVEL 8.1 MG/DL (8.5-10.1); CARBON DIOXIDE LEVEL 19 MEQ/L (21-32); CHLORIDE LEVEL 108 MEQ/L (98-107); CREATININE FOR GFR 0.37 MG/DL (0.55-1.30); GLOMERULAR FILTRATION RATE > 60.0 (>51); GLUCOSE, FASTING 56 MG/DL (70-100); POTASSIUM SERUM 3.5 MEQ/L (3.5-5.1); SODIUM LEVEL 138 MEQ/L (136-145)
[2018-09-05] MEDS: NICOTINE 21MG/24HR 1 EA TRANSDERMAL TD SCH (09:03)
[2018-09-05] MEDS: ENOXAPARIN 40 MG/0.4 ML SYRINGE (J1650) SC SCH (09:03)
[2018-09-05] MEDS: MULTIVITAMINS/MINERALS THERAP 1 TAB PO SCH (09:04)
[2018-09-05] MEDS: FOLIC ACID 1 MG TAB PO SCH (09:04)
[2018-09-05] MEDS: THIAMINE 100 MG TAB PO SCH (09:04)
[2018-09-05 09:46] LABS: APPEARANCE, URINE CLEAR (CLEAR); BACTERIA, URINE AUTO NEGATIVE (NEGATIVE); BILIRUBIN, URINE AUTO NEGATIVE (NEGATIVE); BLOOD, URINE BLOOD 1+ (NEGATIVE); COLOR, URINE YELLOW (YELLOW); GLUCOSE, URINE (UA) AUTO NEGATIVE (NEGATIVE); KETONE, URINE AUTO 2+ mg/dL (NEGATIVE); LEUKOCYTE ESTERASE, URINE AUTO 1+ (NEGATIVE); MUCUS, URINE SMALL (NEGATIVE); NITRITE, URINE AUTO NEGATIVE (NEGATIVE); PROTEIN, URINE AUTO NEGATIVE (NEGATIVE); RBC, URINE AUTO 3 /HPF (0-3); SPECIFIC GRAVITY URINE AUTO 1.014 (1.002-1.035); SQUAMOUS EPITHELIAL CELL UR AU 1 /HPF (0-6); UROBILINOGEN, URINE AUTO 0.2 mg/dL (0.0-2.0); WBC, URINE AUTO 3 /HPF (0-3)
[2018-09-05] MEDS ORDERED: ONDANSETRON 4 MG ORAL DISINTEGRATING TAB (Q0162 PER 1MG) PO PRN (11:00)
--- NOTE | 2018-09-05 11:37 | IPNPDOC ---
Date Seen The patient was seen on 09/05/18. Progress Note SUBJECTIVE: Patient was seen and examined this morning. She has noted improvement in her pain and has stated that she has an appetite. She does complain of an occasional headache. She also states that she has a cough. She denies any fevers or chills. She denies any congestion. She states that she does cough up some phlegm every once and awhile OBJECTIVE PHYSICAL EXAMINATION: VITAL SIGNS: Please see below. GENERAL: Awake, alert, and oriented. She appears in no acute distress. Laying in bed comfortably HEENT: Atraumatic normocephalic. Eyes are nonicteric. Trachea is midline. Mucous membranes are pink and moist CARDIOVASCULAR: Normal S1, S2. Regular rate and rhythm. No clicks rubs or murmu rs RESPIRATORY: Clear breath sounds bilateral with mild crackles in the bases bilaterally. No wheezing, rhonci, or rales. Slightly prolonged expiratory phase ABDOMINAL: Soft, Nondistended. Nontender to palpation of all 4 quadrants. No rebound tenderness or guarding. Positive bowel sound s EXTREMITIES: No edema. Full and equal pulses in bilateral upper and lower extremities NEUROLOGICAL: No focal neurological deficits noted on examination PSYCHOLOGICAL: Mood and affect appear appropriate LABORATORY DATA, IMAGING STUDIES, MICROBIOLOGY: Please see below. DVT prophylaxis ordered?: YES ASSESSMENT AND PLAN: Patient is a 53 year old male with a past medical history significant for alcoholism, pancreatitis, and tobacco abuse who presented to the [facility] ER with complaint of abdominal pain, nausea, and vomiting after drinking a bottle of wine on Monday. Patient had developed the pain after drinking and has attempted to manage her pain by not eating. Her pain worsened and she presented to the [facility] ER where she was found to have an elevated lipase and CT imaging suggestive of acute pancreatits. She was admitted to hospitalist service for further management and care of her pancreatitis PROBLEMS: 1. Acute on Chronic Pancreatitis -Patient has a history of pancreatitis with current CT imaging and laboratory findings to support her diagnosis -Patient has noted improvement in her pain today. We will advance her diet to clear liquids. Her IV pain medication will be transitioned to Percocet 2 tabs Q4HP. -Antiemetic with Zofran ODT -Will D/C IV fluids once patient is tolerating diet 2. History of Alcohol Abuse -Patient has a history of alcohol abuse. She states her last drink was on Monday before her pain started. She had been receiving Serax 10 mg TID. Patient has had no signs of withdrawl over the past 24 hours. Will discontinue at this time -Patient will be continued on CIWA protocol with Ativan PRN per protocol -Folic acid, Thiamine, and Multivitamins 3. History of Tobacco abuses -Patient is a current smoker. Smokes 1 pack per day for past 40 years -Continue Nicotine patch 21 mg daily A-FIB/CHADSVASC A-FIB History Current/History of A-Fib/PAF?: No VS, I&O, 24H, Fishbone Vital Signs/I&O Vital Signs Date Time Temp Pulse Resp B/P (MAP) Pulse Ox O2 Delivery O2 Flow Rate FiO2 09/05/18 09:29 18 09/05/18 09:05 80 122/65 09/05/18 06:00 97.6 97 09/03/18 06:47 Room Air I&O- Last 24 Hours up to 6 AM 09/05/18 06:00 Intake Total 4400 ml Output Total 3250 ml Balance 1150 ml Laboratory Data 24H LABS Laboratory Tests 2 09/05/18 05:37: Nucleated Red Blood Cells % (auto) 0.0 09/05/18 06:34: Anion Gap 11, Glomerular Filtration Rate > 60.0, Blood Urea Nitrogen 5L, Creatinine 0.37L, Sodium Level 138, Potassium Level 3.5, Chloride Level 108H, Carbon Dioxide Level 19L, Calcium Level 8.1L 09/05/18 09:19: Urine Appearance CLEAR, Urine Color YELLOW, Urine pH 5.0, Urine Specific [place] 1.014, Urine Protein NEGATIVE, Urine Glucose (UA) NEGATIVE, Urine Ketones 2+H, Urine Urobilinogen 0.2, Urine Bilirubin NEGATIVE, Urine Leukocyte Esterase 1+H, Urine Blood 1+H, Urine Nitrite NEGATIVE, Urine WBC (Auto) 3, Urine RBC (Auto) 3, Urine Hyaline Casts (Auto) 0, Urine Bacteria (Auto) NEGATIVE, Urine Squamous Epithelial Cells 1, Urine Mucus (Auto) SMALL, Urine Sperm (Auto) CBC/BMP Laboratory Tests 09/05/18 05:37 Red Blood Count 3.14 L, Mean Corpuscular Volume 98.1 H, Mean Corpuscular Hemoglobin 32.2, Mean Corpuscular Hemoglobin Concent 32.8, Red Cell Distribution Width 13.3 5/1/19 06:34 Calcium Level 8.1 L Microbiology Microbiology 09/03/18 Urine Culture - Final, Complete GME ATTESTATION GME ATTESTATION My faculty preceptor for this patient encounter was physically present during the encounter and was fully available. All aspects of the patient interview, examination, medical decision making process, and medical care plan development were reviewed and approved by the faculty preceptor. The faculty preceptor is aware and concurs with the plan as stated in the body of this note and will attest to such by his/her cosignature. ATTENDING NOTE I saw and evaluated the patient. I agree with the findings and plan of care as documented in the resident's note ISHAAN GONZALEZ DO September 05, 2018 11:37 VIRGIL MURPHY MD September 08, 2018 16:11
[2018-09-05] MEDS: PERCOCET 5MG/325MG TAB PO PRN ×3 (12:47→23:59)
--- NOTE | 2018-09-05 16:23 | CR ---
DATE OF CONSULTATION: 09/05/2018 CHIEF COMPLAINT: Abdominal pain. HISTORY OF PRESENT ILLNESS: Lina is a 53-year-old female who was admitted a few days ago for abdominal pain with a history of pancreatitis. She reports severe abdominal pain after consuming alcohol a few days before admission. She was being managed on IV morphine on admission which did not seem to be lasting very long and we were called for evaluation. Today she is feeling better. She is stating that she feels the oral Percocet that was started today has been lasting longer. Rating abdominal pain 7/10. It should be noted that she ate a solid lunch today when she was supposed to be clear liquid. Reports no increase in abdominal pain but she does report going into the bathroom shortly after eating and having an episode of diarrhea. PAST MEDICAL HISTORY Pancreatitis, alcoholism and tobacco abuse, history of IV drug use. PAST SURGICAL HISTORY None. SOCIAL HISTORY She lives with a family member. She does smoke. She smokes approximately a pack a day. History of alcohol abuse with binge drinking. She is a former IV drug user but she is not used in over 13 years. States she works for [employer]. ALLERGIES: See hospital listing. REVIEW OF SYSTEMS 11-point review of systems is positive for cough and headache. Otherwise as stated in HPI. PHYSICAL EXAMINATION Awake, alert, pleasant. Vital signs: 97, 74, 18, BP 107/55, O2 sats 97%. Cardiac: S1, S2, normal rate and rhythm. Respiratory: Lung sounds clear. Respirations nonlabored. Abdomen is soft, protuberant, nontender. Positive bowel sounds times four quadrants. ASSESSMENT Acute pancreatitis. PLAN Recommend continuing with oxycodone 5/325 two tablets every 4 hours as needed for pain. May consider switching to 1 tablet every 6 hours as needed for pain as she progresses and for a short term upon discharge. Thank you for allowing us to participate in the care of your patient. If you have any questions please do not hesitate to contact me. Sincerely, Magui Hannah, Family Nurse Practitioner [facility]
[2018-09-06] MEDS: PERCOCET 5MG/325MG TAB PO PRN ×5 (05:30→23:10)
[2018-09-06 06:00] VITALS: BP 127/68
[2018-09-06 06:11] LABS: HEMATOCRIT 29.8 % (36.0-47.0); MEAN CORPUSCULAR HEMOGLOBIN 32.1 pg (27.0-33.0); MEAN CORPUSCULAR HGB CONC 33.6 g/dl (32.0-36.5); MEAN CORPUSCULAR VOLUME 95.5 fl (80.0-96.0); PLATELET COUNT, AUTOMATED 260 10^3/uL (150-450); RED BLOOD COUNT 3.12 10^6/uL (4.00-5.40); WHITE BLOOD COUNT 11.5 10^3/uL (4.0-10.0)
[2018-09-06 06:30] LABS: BLOOD UREA NITROGEN 5 MG/DL (7-18); CALCIUM LEVEL 8.6 MG/DL (8.5-10.1); CARBON DIOXIDE LEVEL 25 MEQ/L (21-32); CHLORIDE LEVEL 107 MEQ/L (98-107); CREATININE FOR GFR 0.37 MG/DL (0.55-1.30); GLOMERULAR FILTRATION RATE > 60.0 (>51); GLUCOSE, FASTING 86 MG/DL (70-100); POTASSIUM SERUM 3.4 MEQ/L (3.5-5.1); SODIUM LEVEL 137 MEQ/L (136-145)
[2018-09-06 06:39] VITALS: BP 122/67
[2018-09-06] MEDS ORDERED: POTASSIUM CHLORIDE 10 MEQ SR TABLET PO ONE (08:00)
[2018-09-06] MEDS: MULTIVITAMINS/MINERALS THERAP 1 TAB PO SCH (08:44)
[2018-09-06] MEDS: ENOXAPARIN 40 MG/0.4 ML SYRINGE (J1650) SC SCH (08:44)
[2018-09-06] MEDS: FOLIC ACID 1 MG TAB PO SCH (08:44)
[2018-09-06] MEDS: THIAMINE 100 MG TAB PO SCH (08:44)
[2018-09-06] MEDS: NICOTINE 21MG/24HR 1 EA TRANSDERMAL TD SCH (08:44)
--- NOTE | 2018-09-06 09:11 | IPNPDOC ---
Date Seen The patient was seen on 09/06/18. Progress Note SUBJECTIVE: Patient was seen and examined this morning. She states that her pain is more tolerable. She was advanced to a clear liquids diet yesterday and has tolerated with minimal discomfort or nausea/vomiting. She states that she does have an appetite and would like to try eating more solid food today. Patient also states that she is feeling sad today. She has stated that she does not want to hurt herself but she has thought of it. She states that "hurting yourself and not wanting to live are two different things". She denied any past attempts. She states that she wants to go home OBJECTIVE PHYSICAL EXAMINATION: VITAL SIGNS: Please see below. GENERAL: Awake alert and oriented. She appears in no acute distress. She is lying in bed comfortably. She does appear upset HEENT: Atrumatic normocephalic. Eyes are nonocteric. Trachea is midline. Mucous membranes are pink and moist CARDIOVASCULAR: Normal S1, S2. Regular rate and rhythm. No clicks rubs, or murmurs RESPIRATORY: Clear vesicular lung sounds bilaterally with slight bibasilar crackles in the bases. Increased expiratory phase. Good respiratory effort. No wheezing, rhonci, or rales ABDOMINAL: Soft, nondistended, mild tenderness to palpation of midepigastric region. No rebound tenderness or guarding. Positive bowel sounds throughout EXTREMITIES: No edema. Full and equal pulses bilaterally in upper and lower extremities NEUROLOGICAL: No focal neurological deficits PSYCHOLOGICAL: Mood and affect appear appropriate LABORATORY DATA, IMAGING STUDIES, MICROBIOLOGY: Please see below. DVT prophylaxis ordered?: YES ASSESSMENT AND PLAN: Patient is a 53 year old male with a past medical history significant for alcoholism, pancreatitis, and tobacco abuse who presented to the [facility] ER with complaint of abdominal pain, nausea, and vomiting after drinking a bottle of wine on Monday. Patient had developed the pain after drinking and has attempted to manage her pain by not eating. Her pain worsened and she presented to the [facility] ER where she was found to have an elevated lipase and CT imaging suggestive of acute pancreatits. She was admitted to hospitalist service for further management and care of her pancreatitis PROBLEMS: 1. Acute on Chronic Pancreatitis -Patient has a history of pancreatitis with current CT imaging and laboratory findings to support her diagnosis -Patient has noted improvement in her pain today. We will advance her diet to clear liquids. Her IV pain medication will be transitioned to Percocet 2 tabs Q4HP. -Antiemetic with Zofran ODT -Patient has been tolerating liquid diet. Will transition to BRAT diet. 2. History of Alcohol Abuse -Patient has a history of alcohol abuse. She states her last drink was on Monday before her pain started. She had been receiving Serax 10 mg TID. Patient has had no signs of withdrawl over the past 24 hours. Will discontinue at this time -Patient will be continued on CIWA protocol with Ativan PRN per protocol -Folic acid, Thiamine, and Multivitamins 3. History of Tobacco abuses -Patient is a current smoker. Smokes 1 pack per day for past 40 years -Continue Nicotine patch 21 mg daily 4. Suicidal Ideation -Patient was tearful today during examination. She had indicated that she was not suicidal however, that wanting to hurt herself and not wanting to live are different things. The patient stated that she has no past history of suicidal ideation. The patient has no prior admissions or history of depression or suicidal ideation. -Will place patient on suicide precautions with 1 on 1 for suicidal ideation -Psychiatry consult will be placed for formal evaluation of suicidal ideation A-FIB/CHADSVASC A-FIB History Current/History of A-Fib/PAF?: No VS, I&O, 24H, Fishbone Vital Signs/I&O Vital Signs Date Time Temp Pulse Resp B/P (MAP) Pulse Ox O2 Delivery O2 Flow Rate FiO2 09/06/18 06:39 82 122/67 09/06/18 06:19 18 95 09/06/18 06:00 96.8 09/03/18 06:47 Room Air I&O- Last 24 Hours up to 6 AM 09/06/18 06:00 Intake Total 1700 ml Output Total 2800 ml Balance -1100 ml Laboratory Data 24H LABS Laboratory Tests 2 09/05/18 09:19: Urine Appearance CLEAR, Urine Color YELLOW, Urine pH 5.0, Urine Specific Harvey 1.014, Urine Protein NEGATIVE, Urine Glucose (UA) NEGATIVE, Urine Ketones 2+H, Urine Urobilinogen 0.2, Urine Bilirubin NEGATIVE, Urine Leukocyte Esterase 1+H, Urine Blood 1+H, Urine Nitrite NEGATIVE, Urine WBC (Auto) 3, Urine RBC (Auto) 3, Urine Hyaline Casts (Auto) 0, Urine Bacteria (Auto) NEGATIVE, Urine Squamous Epithelial Cells 1, Urine Mucus (Auto) SMALL, Urine Sperm (Auto) 09/06/18 05:31: Nucleated Red Blood Cells % (auto) 0.0, Anion Gap 5L, Glomerular Filtration Rate > 60.0, Blood Urea Nitrogen 5L, Creatinine 0.37L, Sodium Level 137, Potassium Level 3.4L, Chloride Level 107, Carbon Dioxide Level 25, Calcium Level 8.6 CBC/BMP Laboratory Tests 09/06/18 05:31 Red Blood Count 3.12 L, Mean Corpuscular Volume 95.5, Mean Corpuscular Hemoglobin 32.1, Mean Corpuscular Hemoglobin Concent 33.6, Red Cell Distribution Width 13.2, Calcium Level 8.6 Microbiology Microbiology 09/03/18 Urine Culture - Final, Complete GME ATTESTATION GME ATTESTATION My faculty preceptor for this patient encounter was physically present during the encounter and was fully available. All aspects of the patient interview, examination, medical decision making process, and medical care plan development were reviewed and approved by the faculty preceptor. The faculty preceptor is aware and concurs with the plan as stated in the body of this note and will attest to such by his/her cosignature. ATTENDING NOTE Please note I do not co sign for her as of 08/07/18 ISHAAN GONZALEZ DO September 06, 2018 09:11 VIRGIL MURPHY MD September 08, 2018 16:21
[2018-09-06] MEDS ORDERED: LORazepam 0.5 MG TAB PO PRN (13:15)
[2018-09-06] MEDS ORDERED: PILL CRUSHER/CUTTER 1 EACH XX PRN (13:15)
[2018-09-06 14:00] VITALS: BP 137/85
--- NOTE | 2018-09-06 15:59 | DS.PDOC ---
Discharge Summary General Date of Admission Sep 03, 2018 at 10:13 Date of Discharge 09/07/18 Attending Physician: VIRGIL MURPHY MD Specialist/Consultants Involve: Emani Monae Specialist/Consultants Involve [facility] Discharge Summary PROCEDURES PERFORMED DURING STAY: [None]. ADMITTING DIAGNOSES: 1. Acute Alcoholic Pancreatitis 2. Alcoholism 3. Nicotine Dependence 4. History of IV drug use DISCHARGE DIAGNOSES: 1. Acute Pancreatitis 2/2 alcohol use 2. Alcoholism 3. Nicotine Dependence 4. History of IV drug use COMPLICATIONS/CHIEF COMPLAINT: Acute Pancreatitis. HISTORY OF PRESENT ILLNESS: Patient is a 53 year old female with a past medical history significant for alcohol abuse, tobacco abuse, and history of pancreatitis who presented to the [facility] emergency department with complaint of nausea, vomiting and abdominal pain over the past 48 hours. Patient stated that on Monday08/31/2018 she had drank a bottle of wine. She stated that after doing do she began to develop some abdominal pain. She stated that at first it was manageable however continued to worsen. The patient states that she has had pancreatitis in the past and felt this was similar to her past experiences with pancreatitis. Patient stopped eating food as she had hoped that this would make the pain subside. Unfortunately, her pain continued and worsened. Today she states that she can no get comfortable. She states that the pain makes her nauseas and unable to eat. For this reason she felt she should go to the ER. In the ER, the patient received Zofran for her nausea and morphine for her pain. She recieved blood chemistries which demonstrated a lipase of 2058. In addition, she received a CT abdomen which demonstrated findings consistent with pancreatitis. In addition, she was found to have a structure by the body of the pancreas that is consistent with a complex pseudocyst. The patient was subsequently admitted to hospitalist service for further management. HOSPITAL COURSE: Once admitted to hospitalist service the patient was continued on an NPO diet. She received IV fluids for hydrations and morphine for pain management. The patient improved clinically within the next 48 hours. The patient had developed an appeitite and her diet was advanced. She was able to tolerate PO and her IV medications were changed. Her pain was tolerable and managed with Percocet. The patient was tearful at a point in her hospital course and had voiced some concern over suicidal ideation. A psychiatric consult was placed and the patient was evaluated. It was felt that the patient was not suicidal and was cleared from a psychiatric standpoint. It was recommended that the patient be seen at the [facility] behavioral health clinic and the Addiction clinic. She was made aware that she could go as a walk in. DISCHARGE MEDICATIONS: Please see below. ALLERGIES: Please see below. PHYSICAL EXAMINATION ON DISCHARGE: VITAL SIGNS: Please see below. GENERAL: Awake alert and oriented. She appears in no acute distress. She is lying in bed comfortably. She does appear upset HEENT: Atrumatic normocephalic. Eyes are nonocteric. Trachea is midline. Mucous membranes are pink and moist CARDIOVASCULAR: Normal S1, S2. Regular rate and rhythm. No clicks rubs, or murmurs RESPIRATORY: Clear vesicular lung sounds bilaterally with slight bibasilar crackles in the bases. Increased expiratory phase. Good respiratory effort. No wheezing, rhonci, or rales ABDOMINAL: Soft, nondistended, mild tenderness to palpation of midepigastric region. No rebound tenderness or guarding. Positive bowel sounds throughout EXTREMITIES: No edema. Full and equal pulses bilaterally in upper and lower extremities NEUROLOGICAL: No focal neurological deficits PSYCHOLOGICAL: Mood and affect appear appropriate LABORATORY DATA: Please see below. IMAGING: CT ABDOMEN AND PELVIS WITH IV CONTRAST: TECHNIQUE: Axial contrast enhanced images from the lung bases to the pubic symphysis using 100 mL Isovue 370 intravenous contrast material with multiplanar reformations. COMPARISON: 12/07/2017 In the visualized lung bases there is mild bibasilar atelectasis/infiltrate. There is a tiny calcified granuloma in the left lower lobe. The liver, spleen, and adrenals are unremarkable in appearance. Subcentimeter cyst is seen in the right kidney. There is no hydronephrosis. Diffuse mild inflammatory changes are seen surrounding the pancreas compatible with pancreatitis. Common bile duct measures 7 mm at the upper limits of normal. The pancreatic duct does not appear to be dilated. Rounded low density structure posterior to the body of the pancreas measures 2.3 cm in diameter slightly increased in size since prior study when it was 2 cm likely representing a complex pseudocyst. There is no abdominal aortic aneurysm with mild scattered atherosclerotic calcification. I see no adenopathy. There is no free air or significant ascites. No bowel abnormality is seen. There is no evidence of appendicitis. No pelvis mass is seen. Urinary bladder is not well distended and not well evaluated. IMPRESSION: Findings compatible with pancreatitis. No free air and no significant ascites. Rounded hypodense structure posterior to the body of the pancreas has slightly increased in size since 12/07/2017, 2.3 cm in diameter, likely representing a complex pseudocyst. Mild infiltrate/atelectasis in each lung base. Electronically Signed by Ismael Sampson MD 09/03/2018 04:21 P PROGNOSIS: Good ACTIVITY: [As tolerated]. DIET: BRAT diet. Avoid Alcohol consumption DISCHARGE PLAN: Patient was to be discharged yesterday however, she developed some anxiety and asked to stay an additional day as she felt she couldnt manage it. The patient was given Ativan 0.25mg and she tolerated well. Patient was evaluated this morning and appears to be doing well. She will be discharged with F/U with her PCP. She is to take Percocet 1 tab q8h prn for pain for 3 days. She is to follow-up with the [facility] and the Addiction clinic. Patient was counseled on the importance of alcohol cessation as well as tobacco cessation. DISCHARGE CONDITION: [Stable]. TIME SPENT ON DISCHARGE: Greater than 45 minutes. Vital Signs/I&Os Vital Signs Date Time Temp Pulse Resp B/P (MAP) Pulse Ox O2 Delivery O2 Flow Rate FiO2 09/06/18 14:24 16 09/06/18 06:39 82 122/67 09/06/18 06:19 95 09/06/18 06:00 96.8 09/03/18 06:47 Room Air I&O- Last 24 Hours up to 6 AM 09/06/18 06:00 Intake Total 1700 ml Output Total 2800 ml Balance -1100 ml Laboratory Data Labs 24H Laboratory Tests 2 09/06/18 05:31: Nucleated Red Blood Cells % (auto) 0.0, Anion Gap 5L, Glomerular Filtration Rate > 60.0, Blood Urea Nitrogen 5L, Creatinine 0.37L, Sodium Level 137, Potassium Level 3.4L, Chloride Level 107, Carbon Dioxide Level 25, Calcium Level 8.6 CBC/BMP Laboratory Tests 09/06/18 05:31 Red Blood Count 3.12 L, Mean Corpuscular Volume 95.5, Mean Corpuscular Hemoglobin 32.1, Mean Corpuscular Hemoglobin Concent 33.6, Red Cell Distribution Width 13.2, Calcium Level 8.6 Microbiology Microbiology 09/03/18 Urine Culture - Final, Complete Discharge Medications Scheduled PRN Oxycodone HCl/Acetaminophen (Oxycodone-Acetaminophen 5-325) 1 Each Tablet, 1 TAB PO TIDP PRN for pain Allergies Coded Allergies: Penicillins (Verified Allergy, Intermediate, SWELLING OF TONGUE, 09/03/18) GME ATTESTATION GME ATTESTATION My faculty preceptor for this patient encounter was physically present during the encounter and was fully available. All aspects of the patient interview, examination, medical decision making process, and medical care plan development were reviewed and approved by the faculty preceptor. The faculty preceptor is aware and concurs with the plan as stated in the body of this note and will attest to such by his/her cosignature. ATTENDING NOTE I saw and evaluated the patient. I agree with the findings and plan of care as documented in the resident's note ISHAAN GONZALEZ DO September 06, 2018 15:59 VIRGIL MURPHY MD September 08, 2018 16:42
[2018-09-06 22:00] VITALS: BP 129/58
[2018-09-07] MEDS: PERCOCET 5MG/325MG TAB PO PRN ×2 (05:50→10:13)
[2018-09-07 06:00] VITALS: BP 152/80
[2018-09-07 06:05] LABS: HEMATOCRIT 30.1 % (36.0-47.0); HEMOGLOBIN 10.2 g/dl (12.0-15.5); MEAN CORPUSCULAR HEMOGLOBIN 31.7 pg (27.0-33.0); MEAN CORPUSCULAR HGB CONC 33.9 g/dl (32.0-36.5); MEAN CORPUSCULAR VOLUME 93.5 fl (80.0-96.0); PLATELET COUNT, AUTOMATED 308 10^3/uL (150-450); RED BLOOD COUNT 3.22 10^6/uL (4.00-5.40); WHITE BLOOD COUNT 9.9 10^3/uL (4.0-10.0)
[2018-09-07 06:18] LABS: BLOOD UREA NITROGEN 4 MG/DL (7-18); CARBON DIOXIDE LEVEL 27 MEQ/L (21-32); CHLORIDE LEVEL 107 MEQ/L (98-107); CREATININE FOR GFR 0.43 MG/DL (0.55-1.30); GLOMERULAR FILTRATION RATE > 60.0 (>51); GLUCOSE, FASTING 100 MG/DL (70-100); POTASSIUM SERUM 3.3 MEQ/L (3.5-5.1); SODIUM LEVEL 139 MEQ/L (136-145)
[2018-09-07 08:28] LABS: MAGNESIUM LEVEL 1.9 MG/DL (1.8-2.4)
[2018-09-07] MEDS ORDERED: POTASSIUM CHLORIDE 10 MEQ SR TABLET PO ONE (09:00)
[2018-09-07] MEDS: FOLIC ACID 1 MG TAB PO SCH (09:12)
[2018-09-07] MEDS: THIAMINE 100 MG TAB PO SCH (09:12)
[2018-09-07] MEDS: ENOXAPARIN 40 MG/0.4 ML SYRINGE (J1650) SC SCH (09:12)
[2018-09-07] MEDS: MULTIVITAMINS/MINERALS THERAP 1 TAB PO SCH (09:12)
[2018-09-07] MEDS: NICOTINE 21MG/24HR 1 EA TRANSDERMAL TD SCH (09:13)
[2018-09-07] MEDS ORDERED: OXYC1TAB23 PO ×2 (10:54→11:05)
--- NOTE | 2018-09-07 11:17 | IPNPDOC ---
Date Seen The patient was seen on 09/07/18. Progress Note SUBJECTIVE: Patient was seen and examined this morning. She was to be discharged yesterday after her evaluation by Psychiatry. However, the patient stated she was anxious and having a panic attack. The patient stayed for an additional day. She was evaluated this morning and currently has no new complaints. She states she has mild abdominal pain however, it is manageable. OBJECTIVE PHYSICAL EXAMINATION: VITAL SIGNS: Please see below. GENERAL: Awake alert and oriented. She appears in no acute distress. She is lying in bed comfortably. HEENT: Atrumatic normocephalic. Eyes are nonocteric. Trachea is midline. Mucous membranes are pink and moist CARDIOVASCULAR: Normal S1, S2. Regular rate and rhythm. No clicks rubs, or murmurs RESPIRATORY: Clear vesicular lung sounds bilaterally with slight bibasilar crackles in the bases. Increased expiratory phase. Good respiratory effort. No wheezing, rhonci, or rales ABDOMINAL: Soft, nondistended, mild tenderness to palpation of midepigastric re gion. No rebound tenderness or guarding. Positive bowel sounds throughout EXTREMITIES: No edema. Full and equal pulses bilaterally in upper and lower extremities NEUROLOGICAL: No focal neurological deficits PSYCHOLOGICAL: Mood and affect appear appropriate LABORATORY DATA, IMAGING STUDIES, MICROBIOLOGY: Please see below. DVT prophylaxis ordered?: YES ASSESSMENT AND PLAN: Patient is a 53 year old male with a past medical history significant for alcoholism, pancreatitis, and tobacco abuse who presented to the [facility] ER with complaint of abdominal pain, nausea, and vomiting after drinking a bottle of wine on Monday. Patient had developed the pain after drinking and has attempted to manage her pain by not eating. Her pain worsened and she presented to the [facility] ER where she was found to have an elevated lipase and CT imaging suggestive of acute pancreatits. She was admitted to hospitalist service for further management and care of her pancreatitis PROBLEMS: 1. Acute on Chronic Pancreatitis -Patient has mild pain. Tolerating her diet. She was to be discharged yesterday however, stayed an additional night as she stated she was feeling anxious. -For discharge patient will be continued on Percocet 1 tab Q8H prn. She is to follow-up with her PCP for further management -Patient is to avoid alcohol use as this is a trigger for her pancreatitis 2. History of Alcohol Abuse -Patient has a history of alcohol abuse. She has been on CIWA protocol for the duration of her hospitalization however has showed no signs of withdrawl -Patient was advised to avoid alcohol use as this is a trigger for pancreatitis 3. History of Tobacco abuses -Patient has a history of smoking. Counseled on cessation. Patient denies wanting to quit at this time. 4. Suicidal Ideation Patient was evaluated by Psychiatry yesterday due to suicidal ideation. She was cleared. The patient did develop some anxiety and was not discharged. She received ativan 0.25mg for anxiety. Patient appears well this morning and will be discharged. -Patient was advised to follow-up with Behavioral Health Clinic and the Addiction Clinic. She was agreeable 5. Hypokalemia -Patient had mild hypokalemia during her hospitalization. She was given potassium PO PRN. DISPOSITION: Patient was to be discharged yesterday however, she developed some anxiety and asked to stay an additional day as she felt she couldnt manage it. The patient was given Ativan 0.25mg and she tolerated well. Patient was evaluated this morning and appears to be doing well. She will be discharged with F/U with her PCP. She is to take Percocet 1 tab q8h prn for pain for 3 days. She is to follow-up with the [facility] and the Addiction clinic. Patient was counseled on the importance of alcohol cessation as well as tobacco cessation. A-FIB/CHADSVASC A-FIB History Current/History of A-Fib/PAF?: No VS, I&O, 24H, Fishbone Vital Signs/I&O Vital Signs Date Time Temp Pulse Resp B/P (MAP) Pulse Ox O2 Delivery O2 Flow Rate FiO2 09/07/18 10:46 18 09/07/18 06:00 98.3 63 152/80 (104) 96 09/03/18 06:47 Room Air I&O- Last 24 Hours up to 6 AM 09/07/18 06:00 Intake Total 870 ml Output Total 1000 ml Balance -130 ml Laboratory Data 24H LABS Laboratory Tests 2 09/07/18 05:33: Nucleated Red Blood Cells % (auto) 0.0, Anion Gap 5L, Glomerular Filtration Rate > 60.0, Blood Urea Nitrogen 4L, Creatinine 0.43L, Sodium Level 139, Potassium Level 3.3L, Chloride Level 107, Carbon Dioxide Level 27, Calcium Level 9.0, Magnesium Level 1.9 CBC/BMP Laboratory Tests 09/07/18 05:33 Red Blood Count 3.22 L, Mean Corpuscular Volume 93.5, Mean Corpuscular Hemoglobin 31.7, Mean Corpuscular Hemoglobin Concent 33.9, Red Cell Distribution Width 13.1, Calcium Level 9.0 Microbiology Microbiology 09/03/18 Urine Culture - Final, Complete GME ATTESTATION GME ATTESTATION My faculty preceptor for this patient encounter was physically present during the encounter and was fully available. All aspects of the patient interview, examination, medical decision making process, and medical care plan development were reviewed and approved by the faculty preceptor. The faculty preceptor is aware and concurs with the plan as stated in the body of this note and will attest to such by his/her cosignature. ATTENDING NOTE I saw and evaluated the patient. I agree with the findings and plan of care as documented in the resident's note ISHAAN GONZALEZ DO September 07, 2018 11:17 VIRGIL MURPHY MD September 09, 2018 16:37
== END 2018-09-07 12:47 | disposition home or self-care (01) | DRG 282 ==
LOC: M ED 06:46 → M ED INP 10:13 → M MSPAV 14:16
PROVIDERS: ADMIT Internal Medicine Nephrology; ATTEND Internal Medicine
DX: K85.20 Alcohol induced acute pancreatitis without necrosis or infection (principal); F10.20 Alcohol dependence, uncomplicated; F17.200 Nicotine dependence, unspecified, uncomplicated; K86.0 Alcohol-induced chronic pancreatitis; R45.851 Suicidal ideations; E87.6 Hypokalemia

== ENCOUNTER → 2022-03-04 | Outpatient (CLI) | payer OTHER ==
[~2022-03-04] MED LIST changes: +LOPE2CAP PO; +OXYC1TAB23 PO
[2022-03-04 18:22] LABS: BASO # 0.1 10^3/uL (0.0-0.2); BASO % 0.8 % (0.0-1.0); EOS # 0.2 10^3/uL (0.0-0.5); EOS % 2.2 % (0.0-3.0); HEMATOCRIT 34.6 % (36.0-47.0); HEMOGLOBIN 11.7 g/dl (12.0-15.5); LYMPH # 2.6 10^3/uL (1.5-5.0); LYMPH % 26.8 % (24.0-44.0); MEAN CORPUSCULAR HEMOGLOBIN 33.1 pg (27.0-33.0); MEAN CORPUSCULAR HGB CONC 33.8 g/dl (32.0-36.5); MONO % 10.3 % (2.0-8.0); NEUTROPHILS # 5.6 10^3/uL (1.5-8.5); NEUTROPHILS % 59.3 % (36.0-66.0); PLATELET COUNT, AUTOMATED 274 10^3/uL (150-450); RED BLOOD COUNT 3.53 10^6/uL (4.00-5.40); WHITE BLOOD COUNT 9.5 10^3/uL (4.0-10.0)
[2022-03-04 18:58] LABS: ALBUMIN 3.5 GM/DL (3.2-5.2); ALT/SGPT 38 U/L (12-78); BILIRUBIN,TOTAL 0.3 MG/DL (0.2-1.0); BLOOD UREA NITROGEN 7 MG/DL (7-18); C REACTIVE PROTEIN QUANTITATIV 8.26 MG/DL (0.00-0.30); CALCIUM LEVEL 9.3 MG/DL (8.5-10.1); CARBON DIOXIDE LEVEL 30 MEQ/L (21-32); CHLORIDE LEVEL 100 MEQ/L (98-107); CHOLESTEROL LEVEL 277 MG/DL (<200); CHOLESTEROL RISK RATIO 3.847 (<5); GLOMERULAR FILTRATION RATE > 60.0 (>51); GLUCOSE, FASTING 103 MG/DL (70-100); HDL CHOLESTEROL 72 MG/DL (>40); LDL CHOLESTEROL 157 MG/DL (<100); LIPASE 99 U/L (73-393); NON-HDL-C 205 MG/DL; POTASSIUM SERUM 3.1 MEQ/L (3.5-5.1); RHEUMATOID FACTOR QUANT < 10.0 IU/ML (<15.0); SODIUM LEVEL 137 MEQ/L (136-145); TOTAL PROTEIN 7.2 GM/DL (6.4-8.2); TRIGLYCERIDES LEVEL 240 MG/DL (<150)
[2022-03-04 19:04] LABS: ERYTHROCYTE SEDIMENTATION RATE 64 mm/hr (0-30)
[2022-03-04 19:46] LABS: TOTAL 25(OH) VITAMIN D 16.1 NG/ML (30.0-100.0)
[2022-03-04 20:22] LABS: HEMOGLOBIN A1c 5.8 %
[2022-03-08 23:08] LABS: ANA (HEP2) Positive (.); CYCLIC CITRULLINATED PEPTIDE 4 units (0-19)
== END ==
LOC: M PLALAB 14:52
PROVIDERS: ATTEND Nurse Practitioner Family
DX: R06.02 Shortness of breath (principal); M25.50 Pain in unspecified joint; Z13.220 Encounter for screening for lipoid disorders; Z13.1 Encounter for screening for diabetes mellitus; E55.9 Vitamin D deficiency, unspecified; R91.8 Other nonspecific abnormal finding of lung field

== ENCOUNTER → 2022-03-11 | Outpatient (CLI) | payer OTHER ==
[2022-03-11 14:57] LABS: FREE T4 1.08 NG/DL (0.76-1.46); THYROID STIMULATING HORMONE 0.773 uIU/ML (0.358-3.740)
== END ==
LOC: M PLALAB 11:36
PROVIDERS: ATTEND Nurse Practitioner Family
DX: L65.9 Nonscarring hair loss, unspecified (principal)

== ENCOUNTER → 2022-03-22 | Outpatient (CLI) | payer MEDICAID, OTHER | LOC: M WHC 14:04 | PROVIDERS: ATTEND Nurse Practitioner Family | DX: Z12.31 Encounter for screening mammogram for malignant neoplasm of breast (principal) ==

== ENCOUNTER → 2022-03-24 | Outpatient (CLI) | payer OTHER ==
[~2022-03-24] MED LIST changes: +GASTROGRAFIN SOLUTION 30ML As Ordered ONE; +ISOVUE-370 76% 100ML VIAL As Ordered ONE
== END ==
LOC: M RAD 13:28
PROVIDERS: ATTEND Nurse Practitioner Family
DX: R06.02 Shortness of breath (principal); K86.9 Disease of pancreas, unspecified; R19.02 Left upper quadrant abdominal swelling, mass and lump; J47.9 Bronchiectasis, uncomplicated; R91.8 Other nonspecific abnormal finding of lung field; J84.9 Interstitial pulmonary disease, unspecified

== ENCOUNTER → 2022-04-04 | Outpatient (CLI) | payer OTHER, MEDICAID ==
[~2022-04-04] MED LIST changes: -GASTROGRAFIN SOLUTION 30ML As Ordered ONE; -ISOVUE-370 76% 100ML VIAL As Ordered ONE
[2022-04-04 16:29] LABS: LIPASE 36 U/L (12-53)
[2022-04-04 16:31] LABS: AMYLASE 46 U/L (30-118)
[2022-04-06 12:07] LABS: TISSUE TRANSGLUTAMINASE IgA <2 U/mL (0-3); TISSUE TRANSGLUTAMINASE IgG <2 U/mL (0-5)
== END ==
LOC: M LAB 14:29
PROVIDERS: ATTEND Nurse Practitioner Family
DX: R19.7 Diarrhea, unspecified (principal)

== ENCOUNTER → 2022-06-06 | Outpatient (CLI) | payer OTHER ==
[~2022-06-06] MED LIST changes: +ALBU8.5H INH; +ATOR1TAB21 PO; +ERGO500029 PO
== END ==
LOC: M LABSMTC 10:34
PROVIDERS: ATTEND Anesthesiology
DX: Z01.812 Encounter for preprocedural laboratory examination (principal); Z11.52 Encounter for screening for COVID-19

== ENCOUNTER 2022-06-10 12:57 | Day surgery (SDC) | payer OTHER ==
[~2022-06-10] VITALS: Ht 167.6 cm; Wt 69.4 kg
[~2022-06-10 12:57] MED LIST changes: +NS 1,000 ML IV ONE
[2022-06-10] MEDS ORDERED: propofoL 200 MG/20 ML VIAL As Ordered ONE ×2 (14:09→14:55)
[2022-06-10] MEDS ORDERED: LIDOCAINE 2% 100MG/5ML SDV (FOR ANES.) As Ordered ONE (14:09)
[2022-06-10 15:30] VITALS: BP 138/75
== END 2022-06-10 15:37 | disposition home or self-care (01) ==
LOC: M OPP 12:57
PROVIDERS: ATTEND Internal Medicine Gastroenterology
DX: Z12.11 Encounter for screening for malignant neoplasm of colon (principal); K63.5 Polyp of colon; K57.30 Diverticulosis of large intestine without perforation or abscess without bleeding; K52.9 Noninfective gastroenteritis and colitis, unspecified; Z79.02 Long term (current) use of antithrombotics/antiplatelets; Z79.51 Long term (current) use of inhaled steroids; Z88.0 Allergy status to penicillin

== ENCOUNTER 2022-07-17 10:13 | Emergency (ER) | payer OTHER ==
[~2022-07-17] VITALS: Ht 167.6 cm; Wt 69.7 kg
[~2022-07-17 10:13] MED LIST changes: -NS 1,000 ML IV ONE
[2022-07-17] MEDS ORDERED: ONDANSETRON 4MG 2ML VIAL IV ONE (10:35)
[2022-07-17] MEDS ORDERED: NS 1,000 ML IV ONE (10:35)
[2022-07-17] MEDS ORDERED: PANTOPRAZOLE 40MG VIAL IV ONE (10:35)
[2022-07-17] MEDS ORDERED: KETOROLAC 30 MG/ML 1ML VIAL IV ONE (10:35)
[2022-07-17 11:12] LABS: BASO # 0.1 10^3/uL (0.0-0.2); BASO % 0.8 % (0.0-1.0); EOS # 0.1 10^3/uL (0.0-0.5); HEMATOCRIT 41.4 % (36.0-47.0); HEMOGLOBIN 14.6 g/dl (12.0-15.5); LYMPH # 2.6 10^3/uL (1.5-5.0); LYMPH % 29.9 % (24.0-44.0); MEAN CORPUSCULAR HEMOGLOBIN 33.5 pg (27.0-33.0); MEAN CORPUSCULAR HGB CONC 35.3 g/dl (32.0-36.5); MONO # 0.7 10^3/uL (0.0-0.8); NEUTROPHILS # 5.3 10^3/uL (1.5-8.5); PLATELET COUNT, AUTOMATED 278 10^3/uL (150-450); RED BLOOD COUNT 4.36 10^6/uL (4.00-5.40); WHITE BLOOD COUNT 8.8 10^3/uL (4.0-10.0)
[2022-07-17 11:22] LABS: INR 0.91; PROTHROMBIN TIME 12.5 SECONDS (12.5-14.5)
[2022-07-17 11:47] LABS: LIPASE 35 U/L (12-53)
[2022-07-17 11:50] LABS: ALKALINE PHOSPHATASE 119 U/L (46-116); ALT/SGPT 92 U/L (7.0-40); AST/SGOT 122 U/L (<34); BILIRUBIN,DIRECT 0.3 MG/DL (<0.4); BILIRUBIN,TOTAL 0.7 MG/DL (0.3-1.2); BLOOD UREA NITROGEN 8 MG/DL (9-23); CALCIUM LEVEL 8.9 MG/DL (8.5-10.1); CARBON DIOXIDE LEVEL 28 MMOL/L (20-31); CHLORIDE LEVEL 98 MMOL/L (98-107); CREATININE FOR GFR 0.55 MG/DL (0.55-1.30); GLOMERULAR FILTRATION RATE > 60.0 (>51); GLUCOSE, FASTING 117 MG/DL (60-100); SODIUM LEVEL 137 MMOL/L (136-145); TOTAL PROTEIN 6.9 G/DL (5.7-8.2)
[2022-07-17] MEDS ORDERED: POTASSIUM CHLORIDE 10MEQ SR TABLET PO ONE (12:00)
[2022-07-17] MEDS ORDERED: CARA1TAB6 PO (12:09)
[2022-07-17] MEDS ORDERED: PROT20TA11 PO (12:10)
[2022-07-17 12:56] VITALS: BP 155/90
== END 2022-07-17 13:19 | disposition home or self-care (01) ==
LOC: M ED 10:13
DX: K29.70 Gastritis, unspecified, without bleeding (principal); F32.9 Major depressive disorder, single episode, unspecified
CPT/HCPCS: 80048; 80076; 83690; 85025; 85610; 93005; 93041; 96361; 96374; 96375; 99284; C9113; J1885; J2405

== ENCOUNTER → 2022-07-27 | Outpatient (CLI) | payer OTHER ==
[~2022-07-27] MED LIST changes: +CARA1TAB6 PO; +PROHANCE 279.3MG/ML 15ML VIAL As Ordered ONE; +PROT20TA11 PO
== END ==
LOC: M RAD 10:51
PROVIDERS: ATTEND Internal Medicine Gastroenterology
DX: K86.2 Cyst of pancreas (principal)
CPT/HCPCS: 74183; A9576

== ENCOUNTER → 2022-07-27 | Outpatient (CLI) | payer MEDICAID, OTHER ==
[~2022-07-27] MED LIST changes: -PROHANCE 279.3MG/ML 15ML VIAL As Ordered ONE
[2022-07-27 18:29] LABS: ALBUMIN 3.7 G/DL (3.2-5.2); ALKALINE PHOSPHATASE 102 U/L (46-116); ALT/SGPT 55 U/L (7.0-40); AST/SGOT 54 U/L (<34); BILIRUBIN,TOTAL 0.5 MG/DL (0.3-1.2); BLOOD UREA NITROGEN 13 MG/DL (9-23); CALCIUM LEVEL 9.5 MG/DL (8.5-10.1); CARBON DIOXIDE LEVEL 30 MMOL/L (20-31); CHLORIDE LEVEL 104 MMOL/L (98-107); CREATININE FOR GFR 0.58 MG/DL (0.55-1.30); GLOMERULAR FILTRATION RATE > 60.0 (>51); GLUCOSE, FASTING 85 MG/DL (60-100); POTASSIUM SERUM 3.6 MMOL/L (3.5-5.1); SODIUM LEVEL 142 MMOL/L (136-145); TOTAL PROTEIN 6.5 G/DL (5.7-8.2)
== END ==
LOC: M PLALAB 14:21
PROVIDERS: ATTEND Nurse Practitioner Family
DX: R79.89 Other specified abnormal findings of blood chemistry (principal)

== ENCOUNTER → 2022-08-22 | Outpatient (CLI) | payer OTHER | LOC: M LAB 09:40 | PROVIDERS: ATTEND Nurse Practitioner Adult Health | DX: R19.00 Intra-abdominal and pelvic swelling, mass and lump, unspecified site (principal) ==

== ENCOUNTER → 2022-09-01 | Outpatient (CLI) | payer OTHER ==
[2022-09-01 10:53] LABS: BASO # 0.1 10^3/uL (0.0-0.2); BASO % 1.2 % (0.0-1.0); EOS # 0.1 10^3/uL (0.0-0.5); EOS % 1.6 % (0.0-3.0); HEMATOCRIT 42.3 % (36.0-47.0); HEMOGLOBIN 14.1 g/dl (12.0-15.5); LYMPH # 2.9 10^3/uL (1.5-5.0); MEAN CORPUSCULAR HEMOGLOBIN 32.7 pg (27.0-33.0); MEAN CORPUSCULAR HGB CONC 33.3 g/dl (32.0-36.5); MEAN CORPUSCULAR VOLUME 98.1 fl (80.0-96.0); MONO # 0.6 10^3/uL (0.0-0.8); NEUTROPHILS # 4.8 10^3/uL (1.5-8.5); NEUTROPHILS % 55.2 % (36.0-66.0); PLATELET COUNT, AUTOMATED 309 10^3/uL (150-450); RED BLOOD COUNT 4.31 10^6/uL (4.00-5.40); WHITE BLOOD COUNT 8.6 10^3/uL (4.0-10.0)
[2022-09-01 11:27] LABS: ALKALINE PHOSPHATASE 109 U/L (46-116); ALT/SGPT 90 U/L (7.0-40); AST/SGOT 74 U/L (<34); BILIRUBIN,TOTAL 0.5 MG/DL (0.3-1.2); BLOOD UREA NITROGEN 11 MG/DL (9-23); CALCIUM LEVEL 9.9 MG/DL (8.5-10.1); CARBON DIOXIDE LEVEL 28 MMOL/L (20-31); CHLORIDE LEVEL 103 MMOL/L (98-107); CHOLESTEROL LEVEL 218 MG/DL (<200); CHOLESTEROL RISK RATIO 2.39 (<5); GLOMERULAR FILTRATION RATE > 60.0 (>51); GLUCOSE, FASTING 101 MG/DL (60-100); POTASSIUM SERUM 4.3 MMOL/L (3.5-5.1); SODIUM LEVEL 141 MMOL/L (136-145); TOTAL PROTEIN 7.4 G/DL (5.7-8.2); TRIGLYCERIDES LEVEL 300 MG/DL (<150)
[2022-09-01 11:28] LABS: TOTAL 25(OH) VITAMIN D 40.9 NG/ML (20.0-100.0); VITAMIN B12 LEVEL 241 PG/ML (211-911)
== END ==
LOC: M LAB 09:40
PROVIDERS: ATTEND Nurse Practitioner Family
DX: R79.89 Other specified abnormal findings of blood chemistry (principal); E55.9 Vitamin D deficiency, unspecified; E78.5 Hyperlipidemia, unspecified; F10.10 Alcohol abuse, uncomplicated; R73.01 Impaired fasting glucose; K21.9 Gastro-esophageal reflux disease without esophagitis

== ENCOUNTER → 2022-11-01 | Outpatient (CLI) | payer OTHER, MEDICAID | LOC: M PLALAB 11:15 | PROVIDERS: ATTEND Nurse Practitioner Family | DX: M54.6 Pain in thoracic spine (principal); M54.12 Radiculopathy, cervical region; M47.817 Spondylosis without myelopathy or radiculopathy, lumbosacral region; M47.812 Spondylosis without myelopathy or radiculopathy, cervical region; M47.814 Spondylosis without myelopathy or radiculopathy, thoracic region; M85.88 Other specified disorders of bone density and structure, other site ==

== ENCOUNTER → 2022-11-22 | Outpatient (CLI) | payer OTHER ==
[~2022-11-22] MED LIST changes: +GASTROGRAFIN SOLUTION 30ML ONE; +ISOVUE-370 76% 100ML VIAL ONE
== END ==
LOC: M PLAIMG 08:59
PROVIDERS: ATTEND Nurse Practitioner Family
DX: R19.02 Left upper quadrant abdominal swelling, mass and lump (principal); N28.1 Cyst of kidney, acquired; K57.30 Diverticulosis of large intestine without perforation or abscess without bleeding; M47.9 Spondylosis, unspecified; M53.3 Sacrococcygeal disorders, not elsewhere classified; M16.0 Bilateral primary osteoarthritis of hip

== ENCOUNTER → 2022-11-22 | Outpatient (CLI) | payer OTHER ==
[~2022-11-22] MED LIST changes: -GASTROGRAFIN SOLUTION 30ML ONE; -ISOVUE-370 76% 100ML VIAL ONE
== END ==
LOC: M PLAIMG 09:02
PROVIDERS: ATTEND Nurse Practitioner Family
DX: D36.15 Benign neoplasm of peripheral nerves and autonomic nervous system of abdomen (principal); R91.8 Other nonspecific abnormal finding of lung field

== ENCOUNTER → 2022-11-30 | Outpatient (CLI) | payer OTHER ==
[~2022-11-30] MED LIST changes: +MAGN400T2 PO; +POTA-151 PO
[2022-11-30 10:42] LABS: BASO # 0.1 10^3/uL (0.0-0.2); EOS # 0.1 10^3/uL (0.0-0.5); EOS % 1.1 % (0.0-3.0); HEMATOCRIT 33.5 % (36.0-47.0); HEMOGLOBIN 11.5 g/dl (12.0-15.5); LYMPH # 1.9 10^3/uL (1.5-5.0); LYMPH % 21.5 % (24.0-44.0); MEAN CORPUSCULAR HGB CONC 34.3 g/dl (32.0-36.5); MONO # 0.7 10^3/uL (0.0-0.8); MONO % 8.2 % (2.0-8.0); NEUTROPHILS # 6.1 10^3/uL (1.5-8.5); NEUTROPHILS % 67.8 % (36.0-66.0); PLATELET COUNT, AUTOMATED 295 10^3/uL (150-450); RED BLOOD COUNT 3.49 10^6/uL (4.00-5.40)
[2022-11-30 11:02] LABS: HEMOGLOBIN A1c 5.8 % (4.0-6.0)
[2022-11-30 11:15] LABS: THYROID STIMULATING HORMONE 1.061 uIU/ML (0.55-4.78)
[2022-11-30 11:22] LABS: ALBUMIN 3.3 G/DL (3.2-5.2); BILIRUBIN,TOTAL 0.5 MG/DL (0.3-1.2); CHOLESTEROL RISK RATIO 1.75 (<5); CREATININE FOR GFR 1.34 MG/DL (0.55-1.30); GLOMERULAR FILTRATION RATE 43.6 (>51); HDL CHOLESTEROL 78.7 MG/DL (>40); LDL CHOLESTEROL 28.1 MG/DL (<100); NON-HDL-C 59.3 MG/DL; POTASSIUM SERUM 2.9 MMOL/L (3.5-5.1); TOTAL PROTEIN 6.1 G/DL (5.7-8.2)
[2022-12-01 11:06] LABS: MAGNESIUM LEVEL 0.9 MG/DL (1.8-2.4); PTH INTACT 84.5 PG/ML (18.5-88.0); TOTAL 25(OH) VITAMIN D 84.1 NG/ML (20.0-100.0)
== END ==
LOC: M PLALAB 08:27
PROVIDERS: ATTEND Family Medicine
DX: E53.8 Deficiency of other specified B group vitamins (principal); E78.5 Hyperlipidemia, unspecified; R73.01 Impaired fasting glucose; R20.2 Paresthesia of skin

== ENCOUNTER 2022-12-01 13:58 | Emergency (ER) | payer OTHER ==
[~2022-12-01] VITALS: Ht 167.6 cm; Wt 66.8 kg
[~2022-12-01 13:58] MED LIST changes: -MAGN400T2 PO; -POTA-151 PO
[2022-12-01 15:00] LABS: BASO # 0.1 10^3/uL (0.0-0.2); EOS # 0.1 10^3/uL (0.0-0.5); EOS % 1.2 % (0.0-3.0); HEMATOCRIT 32.9 % (36.0-47.0); HEMOGLOBIN 11.7 g/dl (12.0-15.5); LYMPH # 3.5 10^3/uL (1.5-5.0); LYMPH % 38.3 % (24.0-44.0); MEAN CORPUSCULAR HEMOGLOBIN 33.2 pg (27.0-33.0); MEAN CORPUSCULAR HGB CONC 35.6 g/dl (32.0-36.5); MEAN CORPUSCULAR VOLUME 93.5 fl (80.0-96.0); MONO # 0.8 10^3/uL (0.0-0.8); MONO % 8.7 % (2.0-8.0); NEUTROPHILS # 4.6 10^3/uL (1.5-8.5); NEUTROPHILS % 50.4 % (36.0-66.0); PLATELET COUNT, AUTOMATED 288 10^3/uL (150-450); RED BLOOD COUNT 3.52 10^6/uL (4.00-5.40)
[2022-12-01 15:35] LABS: ALBUMIN 3.4 G/DL (3.2-5.2); BILIRUBIN,DIRECT 0.2 MG/DL (<0.4); BILIRUBIN,TOTAL 0.4 MG/DL (0.3-1.2); CALCIUM LEVEL 7.2 MG/DL (8.5-10.1); CREATININE FOR GFR 1.19 MG/DL (0.55-1.30); MAGNESIUM LEVEL 0.8 MG/DL (1.8-2.4); POTASSIUM SERUM 3.1 MMOL/L (3.5-5.1); TOTAL PROTEIN 6.3 G/DL (5.7-8.2)
[2022-12-01] MEDS ORDERED: MAG SULF 1GM/100ML (MAG RUN) 1 GM in IV 1 EA IV ONE ×2 (15:45→17:00)
[2022-12-01] MEDS ORDERED: POTASSIUM CHLORIDE 10MEQ SR TABLET PO ONE (15:45)
[2022-12-01] MEDS ORDERED: MAGN400T2 PO (17:14)
[2022-12-01] MEDS ORDERED: POTA-151 PO (17:14)
[2022-12-01 18:13] VITALS: BP 164/82; TEMP 98.2; O2SAT 98
== END 2022-12-01 18:21 | disposition home or self-care (01) ==
LOC: M ED 13:58
DX: E87.6 Hypokalemia (principal); E83.42 Hypomagnesemia; F17.200 Nicotine dependence, unspecified, uncomplicated; Z79.899 Other long term (current) drug therapy; Z88.0 Allergy status to penicillin
CPT/HCPCS: 80048; 80076; 83690; 83735; 85025; 93005; 96365; 99285; J3475

== ENCOUNTER 2022-12-12 08:47 | Inpatient (IN) | payer OTHER ==
[~2022-12-12] VITALS: Ht 167.6 cm; Wt 65.1 kg
[~2022-12-12 08:47] MED LIST changes: +MAGN400T2 PO; +POTA-151 PO
[2022-12-12] MEDS ORDERED: NS 1,000 ML IV ONE (11:50)
[2022-12-12 12:09] LABS: VENOUS BASE EXCESS 6.9 (-2.0-2.0); VENOUS HCO3 30.6 MMOL/L (23.0-27.0); VENOUS O2 SATURATION 87.2 % (60.0-80.0); VENOUS PARTIAL PRESSURE CO2 39.8 mmHg (38.0-50.0); VENOUS PARTIAL PRESSURE O2 52.6 mmHg (30.0-50.0); VENOUS PH 7.503 UNITS (7.330-7.430); VENOUS STANDARD HCO3 30.5 MMOL/L; VENOUS TOTAL CO2 31.8 MMOL/L (24.0-28.0)
[2022-12-12 12:17] LABS: BASO # 0.1 10^3/uL (0.0-0.2); BASO % 0.8 % (0.0-1.0); EOS % 0.2 % (0.0-3.0); HEMATOCRIT 35.4 % (36.0-47.0); HEMOGLOBIN 12.5 g/dl (12.0-15.5); LYMPH # 2.1 10^3/uL (1.5-5.0); MEAN CORPUSCULAR HEMOGLOBIN 33.2 pg (27.0-33.0); MEAN CORPUSCULAR HGB CONC 35.3 g/dl (32.0-36.5); MEAN CORPUSCULAR VOLUME 93.9 fl (80.0-96.0); MONO # 0.5 10^3/uL (0.0-0.8); MONO % 4.8 % (2.0-8.0); NEUTROPHILS # 7.7 10^3/uL (1.5-8.5); NEUTROPHILS % 73.8 % (36.0-66.0); PLATELET COUNT, AUTOMATED 246 10^3/uL (150-450); RED BLOOD COUNT 3.77 10^6/uL (4.00-5.40); WHITE BLOOD COUNT 10.4 10^3/uL (4.0-10.0)
[2022-12-12 12:27] LABS: INR 0.97; PARTIAL THROMBOPLASTIN TIME 25.5 SECONDS (24.8-34.2); PROTHROMBIN TIME 13.1 SECONDS (12.5-14.5)
[2022-12-12 12:34] LABS: ETHYL ALCOHOL (ETHANOL) < 0.003 % (0.000-0.010)
[2022-12-12] MEDS ORDERED: NS IV ONE (12:35)
[2022-12-12 12:37] LABS: THYROID STIMULATING HORMONE 1.431 uIU/ML (0.55-4.78)
[2022-12-12 12:38] LABS: FREE T4 1.06 NG/DL (0.89-1.76)
[2022-12-12 12:43] LABS: OSMOLALITY SERUM 298 MOSM/KG (275-295)
[2022-12-12 12:44] LABS: AMPHETAMINES LEVEL URINE NEGATIVE (NEGATIVE); BARBITURATES URINE NEGATIVE (NEGATIVE); BENZODIAZEPINES URINE NEGATIVE (NEGATIVE); COCAINE METABOLITE URINE NEGATIVE (NEGATIVE); METHADONE URINE NEGATIVE (NEGATIVE); OPIATES URINE NEGATIVE (NEGATIVE); PHENCYCLIDINE URINE NEGATIVE (NEGATIVE)
[2022-12-12 12:45] LABS: CANNABINOIDS URINE POSITIVE (NEGATIVE)
[2022-12-12 13:03] LABS: ALBUMIN 3.7 G/DL (3.2-5.2); ALKALINE PHOSPHATASE 222 U/L (46-116); ALT/SGPT 475 U/L (7.0-40); AST/SGOT 1158 U/L (<34); BILIRUBIN,DIRECT 0.6 MG/DL (<0.4); BLOOD UREA NITROGEN 8 MG/DL (9-23); CALCIUM LEVEL 7.1 MG/DL (8.5-10.1); CARBON DIOXIDE LEVEL 32 MMOL/L (20-31); CHLORIDE LEVEL 96 MMOL/L (98-107); CREATININE FOR GFR 0.57 MG/DL (0.55-1.30); GLOMERULAR FILTRATION RATE > 60.0 (>51); GLUCOSE, FASTING 123 MG/DL (60-100); MAGNESIUM LEVEL 1.2 MG/DL (1.8-2.4); POTASSIUM SERUM 2.6 MMOL/L (3.5-5.1); SODIUM LEVEL 142 MMOL/L (136-145); TOTAL PROTEIN 6.6 G/DL (5.7-8.2)
[2022-12-12] MEDS ORDERED: MAG SULF 1GM/100ML (MAG RUN) 1 GM in IV 1 EA IV ONE ×3 (13:30→22:35)
[2022-12-12] MEDS ORDERED: POTASSIUM CHLORIDE 10MEQ SR TABLET PO ONE (14:00)
[2022-12-12] MEDS ORDERED: KCL 10MEQ/100ML SWI (KRUN) 10 MEQ in IV 1 EA IV ONE (14:30)
[2022-12-12] MEDS: FOLIC ACID 1MG TAB PO SCH (15:27)
[2022-12-12] MEDS: MULTIVITAMINS/MINERALS THERAP 1 TAB PO SCH (15:27)
[2022-12-12] MEDS: THIAMINE 100 MG TAB PO SCH (15:31)
[2022-12-12] MEDS: LORazepam 2 MG TAB PO PRN ×3 (16:00→17:53)
[2022-12-12] MEDS ORDERED: LR 1,000 ML IV ONE (16:10)
[2022-12-12 16:34] LABS: CK-MB VALUE MASS 1.5 NG/ML (<3.6)
[2022-12-12 16:37] LABS: MB/CK RELATIVE INDEX 0.33 (< OR =4)
[2022-12-12] MEDS ORDERED: CALCIUM GLUCONATE 1,000 MG in D5W MINI-BAG PLUS 100 ML IV ONE (17:00)
[2022-12-12 19:10] VITALS: BP 179/81; TEMP 97.6; O2SAT 98
[2022-12-12] MEDS: LEVALBUTEROL 1.25MG 0.5ML CONCENTRATE NEB NEB SCH (20:44)
[2022-12-12] MEDS: KCL 10MEQ/100ML SWI (KRUN) 10 MEQ in IV 1 EA IV SCH ×3 (21:06→23:37)
[2022-12-12] MEDS: CALCIUM CARBONATE 500 MG CHEW U/D PO SCH (21:07)
[2022-12-12 21:40] VITALS: BP 130/66
[2022-12-12 22:12] LABS: BLOOD UREA NITROGEN 6 MG/DL (9-23); CALCIUM LEVEL 6.2 MG/DL (8.5-10.1); CARBON DIOXIDE LEVEL 28 MMOL/L (20-31); CHLORIDE LEVEL 104 MMOL/L (98-107); CREATININE FOR GFR 0.51 MG/DL (0.55-1.30); GLOMERULAR FILTRATION RATE > 60.0 (>51); GLUCOSE, FASTING 127 MG/DL (60-100); MAGNESIUM LEVEL 1.8 MG/DL (1.8-2.4); POTASSIUM SERUM 2.8 MMOL/L (3.5-5.1); SODIUM LEVEL 144 MMOL/L (136-145)
[2022-12-12] MEDS: POTASSIUM CHLORIDE 10MEQ SR TABLET PO SCH (23:07)
[2022-12-12] MEDS: FIDAXOMICIN 200 MG TAB (DIFICID) PO SCH (23:07)
[2022-12-12] MEDS: LR 1,000 ML IV SCH (23:07)
[2022-12-12 23:38] VITALS: BP 136/77; TEMP 97.9; O2SAT 97
[2022-12-13] MEDS: POTASSIUM CHLORIDE 10MEQ SR TABLET PO SCH ×3 (00:57→20:20)
[2022-12-13] MEDS: RAMELTEON 8 MG TAB (ROZEREM) PO SCH ×2 (01:21→20:20)
[2022-12-13] MEDS: LEVALBUTEROL 1.25MG 0.5ML CONCENTRATE NEB NEB SCH ×3 (01:22→13:13)
[2022-12-13] MEDS ORDERED: CYAN1000VL IM (01:46)
[2022-12-13] MEDS ORDERED: ALBU8.5H INH (01:46)
[2022-12-13] MEDS ORDERED: LOSA50TA28 PO (01:46)
[2022-12-13] MEDS ORDERED: SERT25TA21 PO (01:46)
[2022-12-13] MEDS ORDERED: ERGO500029 PO (01:46)
[2022-12-13] MEDS ORDERED: HOME MED LIST COMPLETE! XX SCH (01:50)
[2022-12-13 02:22] LABS: BLOOD UREA NITROGEN 6 MG/DL (9-23); CALCIUM LEVEL 6.4 MG/DL (8.5-10.1); CARBON DIOXIDE LEVEL 27 MMOL/L (20-31); CHLORIDE LEVEL 105 MMOL/L (98-107); CREATININE FOR GFR 0.48 MG/DL (0.55-1.30); GLOMERULAR FILTRATION RATE > 60.0 (>51); GLUCOSE, FASTING 134 MG/DL (60-100); POTASSIUM SERUM 3.1 MMOL/L (3.5-5.1); SODIUM LEVEL 143 MMOL/L (136-145)
[2022-12-13] MEDS ORDERED: LACTATED RINGER'S 1000 ML IV ONE (02:35)
[2022-12-13] MEDS: KCL 10MEQ/100ML SWI (KRUN) 10 MEQ in IV 1 EA IV SCH ×2 (02:47→03:59)
[2022-12-13] MEDS: LR 1,000 ML IV SCH ×2 (03:26→11:02)
[2022-12-13 04:03] VITALS: BP 169/81; TEMP 98.4; O2SAT 98
[2022-12-13 04:40] VITALS: BP 161/75
[2022-12-13 05:40] LABS: BASO # 0.1 10^3/uL (0.0-0.2); EOS # 0.1 10^3/uL (0.0-0.5); EOS % 0.9 % (0.0-3.0); HEMATOCRIT 28.9 % (36.0-47.0); LYMPH # 2.1 10^3/uL (1.5-5.0); LYMPH % 30.1 % (24.0-44.0); MEAN CORPUSCULAR HEMOGLOBIN 33.7 pg (27.0-33.0); MEAN CORPUSCULAR HGB CONC 34.9 g/dl (32.0-36.5); MEAN CORPUSCULAR VOLUME 96.3 fl (80.0-96.0); MONO # 0.4 10^3/uL (0.0-0.8); MONO % 5.3 % (2.0-8.0); NEUTROPHILS # 4.2 10^3/uL (1.5-8.5); NEUTROPHILS % 62.3 % (36.0-66.0); PLATELET COUNT, AUTOMATED 185 10^3/uL (150-450); WHITE BLOOD COUNT 6.8 10^3/uL (4.0-10.0)
[2022-12-13 05:42] LABS: HEMOGLOBIN 10.1 g/dl (12.0-15.5)
[2022-12-13 06:06] LABS: HEPATITIS B CORE ANTIBODY IGM NEGATIVE (NEGATIVE); HEPATITIS C VIRUS ABY INDEX 0.13 INDEX (<0.8)
[2022-12-13 06:28] LABS: ALBUMIN 2.8 G/DL (3.2-5.2); ALKALINE PHOSPHATASE 187 U/L (46-116); ALT/SGPT 409 U/L (7.0-40); AST/SGOT 1025 U/L (<34); BILIRUBIN,TOTAL 0.9 MG/DL (0.3-1.2); BLOOD UREA NITROGEN < 5 MG/DL (9-23); CALCIUM LEVEL 6.4 MG/DL (8.5-10.1); CARBON DIOXIDE LEVEL 26 MMOL/L (20-31); CHLORIDE LEVEL 108 MMOL/L (98-107); CREATININE FOR GFR 0.43 MG/DL (0.55-1.30); GLOMERULAR FILTRATION RATE > 60.0 (>51); GLUCOSE, FASTING 114 MG/DL (60-100); MAGNESIUM LEVEL 1.5 MG/DL (1.8-2.4); PHOSPHORUS LEVEL 2.9 MG/DL (2.5-4.9); POTASSIUM SERUM 3.8 MMOL/L (3.5-5.1); SODIUM LEVEL 143 MMOL/L (136-145); TOTAL PROTEIN 5.2 G/DL (5.7-8.2)
[2022-12-13 09:03] VITALS: BP 167/74; TEMP 97; O2SAT 98
[2022-12-13] MEDS: MULTIVITAMINS/MINERALS THERAP 1 TAB PO SCH (09:31)
[2022-12-13] MEDS: THIAMINE 100 MG TAB PO SCH ×2 (09:31→20:20)
[2022-12-13] MEDS: LOSARTAN 50MG TABLET PO SCH (09:31)
[2022-12-13] MEDS: FOLIC ACID 1MG TAB PO SCH (09:31)
[2022-12-13] MEDS: ENOXAPARIN 40MG/0.4ML SYRINGE (J1650 PER 10MG) SC SCH (09:31)
[2022-12-13] MEDS: CALCIUM CARBONATE 500 MG CHEW U/D PO SCH ×2 (09:32→20:19)
[2022-12-13] MEDS: LACTOBACILLUS ACIDOPHILUS CAP (BACID) PO SCH ×3 (09:32→19:14)
[2022-12-13] MEDS ORDERED: MAG SULF 1GM/100ML (MAG RUN) 1 GM in IV 1 EA IV ONE ×2 (09:35→20:00)
[2022-12-13] MEDS: MAG SULF 1GM/100ML (MAG RUN) 1 GM in IV 1 EA IV SCH ×2 (10:12→13:22)
[2022-12-13 12:00] VITALS: BP 141/73; TEMP 97.8; O2SAT 97
[2022-12-13] MEDS ORDERED: POTASSIUM CHLORIDE 10MEQ SR TABLET PO ONE (12:00)
[2022-12-13] MEDS ORDERED: CALCIUM GLUCONATE 1,000 MG in D5W MINI-BAG PLUS 100 ML IV ONE (13:00)
[2022-12-13] MEDS: amLODIPine 5 MG TAB PO SCH ×2 (13:24→20:20)
[2022-12-13] MEDS: NS 1,000 ML IV SCH (13:26)
[2022-12-13] MEDS: FIDAXOMICIN 200 MG TAB (DIFICID) PO SCH ×2 (14:43→20:20)
[2022-12-13 14:54] LABS: POTASSIUM SERUM 3.6 MMOL/L (3.5-5.1)
[2022-12-13] MEDS ORDERED: ALPRAZolam 0.5 MG TAB PO ONE (15:05)
[2022-12-13] MEDS ORDERED: LEVALBUTEROL 1.25MG 0.5ML CONCENTRATE NEB INH PRN (15:15)
[2022-12-13] MEDS: NICOTINE 21MG/24HR 1 EA TRANSDERMAL TD SCH (15:32)
[2022-12-13 16:37] VITALS: BP 146/65; TEMP 98.4; O2SAT 98
[2022-12-13 20:07] LABS: IONIZED CALCIUM 3.8 MG/DL (4.5-5.3)
[2022-12-13 20:16] VITALS: BP 141/68; TEMP 97.1; O2SAT 97
[2022-12-13 20:34] LABS: POTASSIUM SERUM 3.4 MMOL/L (3.5-5.1)
[2022-12-14] VITALS (7 sets, daily range): BP systolic 125–153; BP diastolic 67–97; TEMP 96.5–98.1; O2SAT 96–98
[2022-12-14] MEDS: MAG SULF 1GM/100ML (MAG RUN) 100 ML IV SCH ×2 (01:08→02:16)
[2022-12-14 02:07] LABS: IONIZED CALCIUM 3.7 MG/DL (4.5-5.3)
[2022-12-14 02:53] LABS: POTASSIUM SERUM 3.6 MMOL/L (3.5-5.1)
[2022-12-14] MEDS: NS 1,000 ML IV SCH (05:53)
[2022-12-14 06:42] LABS: ALBUMIN 3.3 G/DL (3.2-5.2); ALKALINE PHOSPHATASE 224 U/L (46-116); ALT/SGPT 319 U/L (7.0-40); AST/SGOT 425 U/L (<34); BILIRUBIN,DIRECT 0.4 MG/DL (<0.4); BILIRUBIN,TOTAL 0.8 MG/DL (0.3-1.2); BLOOD UREA NITROGEN < 5 MG/DL (9-23); CALCIUM LEVEL 7.4 MG/DL (8.5-10.1); CARBON DIOXIDE LEVEL 22 MMOL/L (20-31); CHLORIDE LEVEL 107 MMOL/L (98-107); CREATININE FOR GFR 0.37 MG/DL (0.55-1.30); GLOMERULAR FILTRATION RATE > 60.0 (>51); GLUCOSE, FASTING 118 MG/DL (60-100); SODIUM LEVEL 142 MMOL/L (136-145); TOTAL PROTEIN 6.4 G/DL (5.7-8.2)
[2022-12-14] MEDS ORDERED: SENOKOT S TAB PO PRN (07:40)
[2022-12-14] MEDS ORDERED: CALCIUM GLUCONATE 1,000 MG in D5W MINI-BAG PLUS 100 ML IV ONE (09:00)
[2022-12-14] MEDS: ENOXAPARIN 40MG/0.4ML SYRINGE (J1650 PER 10MG) SC SCH (09:12)
[2022-12-14] MEDS: LOSARTAN 50MG TABLET PO SCH (09:13)
[2022-12-14] MEDS: CALCIUM CARBONATE 500 MG CHEW U/D PO SCH ×2 (09:13→20:56)
[2022-12-14] MEDS: CALCIUM/VITAMIN D 500 MG TAB PO SCH ×2 (09:13→17:13)
[2022-12-14] MEDS: NICOTINE 21MG/24HR 1 EA TRANSDERMAL TD SCH (09:13)
[2022-12-14] MEDS: FIDAXOMICIN 200 MG TAB (DIFICID) PO SCH ×2 (09:13→20:56)
[2022-12-14] MEDS: THIAMINE 100 MG TAB PO SCH ×2 (09:14→20:55)
[2022-12-14] MEDS: MULTIVITAMINS/MINERALS THERAP 1 TAB PO SCH (09:14)
[2022-12-14] MEDS: POTASSIUM CHLORIDE 10MEQ SR TABLET PO SCH ×2 (09:14→20:56)
[2022-12-14] MEDS: LACTOBACILLUS ACIDOPHILUS CAP (BACID) PO SCH ×3 (09:14→17:12)
[2022-12-14] MEDS: amLODIPine 5 MG TAB PO SCH ×2 (09:14→20:56)
[2022-12-14] MEDS: FOLIC ACID 1MG TAB PO SCH (09:14)
[2022-12-14] MEDS ORDERED: MAG SULF 1GM/100ML (MAG RUN) 1 GM in IV 1 EA IV ONE ×2 (10:00→22:00)
[2022-12-14] MEDS: SERTRALINE HCL 25 MG TABLET PO SCH (11:37)
[2022-12-14] MEDS: ALPRAZolam 0.5 MG TAB PO PRN ×2 (11:59→20:56)
[2022-12-14 12:02] LABS: IONIZED CALCIUM 4.6 MG/DL (4.5-5.3)
[2022-12-14 12:34] LABS: MAGNESIUM LEVEL 1.9 MG/DL (1.8-2.4); POTASSIUM SERUM 4.5 MMOL/L (3.5-5.1)
[2022-12-14 18:08] LABS: IONIZED CALCIUM 4.2 MG/DL (4.5-5.3)
[2022-12-14 18:37] LABS: MAGNESIUM LEVEL 1.5 MG/DL (1.8-2.4)
[2022-12-14] MEDS: RAMELTEON 8 MG TAB (ROZEREM) PO SCH (20:56)
[2022-12-15 05:09] VITALS: BP 133/82; TEMP 97.7; O2SAT 96
[2022-12-15 06:43] LABS: ALBUMIN 3.1 G/DL (3.2-5.2); ALKALINE PHOSPHATASE 227 U/L (46-116); ALT/SGPT 223 U/L (7.0-40); AST/SGOT 193 U/L (<34); BILIRUBIN,DIRECT 0.3 MG/DL (<0.4); BILIRUBIN,TOTAL 0.6 MG/DL (0.3-1.2); BLOOD UREA NITROGEN < 5 MG/DL (9-23); CALCIUM LEVEL 9.6 MG/DL (8.5-10.1); CARBON DIOXIDE LEVEL 25 MMOL/L (20-31); CHLORIDE LEVEL 106 MMOL/L (98-107); CREATININE FOR GFR 0.42 MG/DL (0.55-1.30); GLOMERULAR FILTRATION RATE > 60.0 (>51); GLUCOSE, FASTING 130 MG/DL (60-100); POTASSIUM SERUM 4.5 MMOL/L (3.5-5.1); SODIUM LEVEL 141 MMOL/L (136-145); TOTAL PROTEIN 6.2 G/DL (5.7-8.2)
[2022-12-15] MEDS: POTASSIUM CHLORIDE 10MEQ SR TABLET PO SCH (07:58)
[2022-12-15 08:18] VITALS: BP 137/94
[2022-12-15] MEDS: amLODIPine 5 MG TAB PO SCH (08:18)
[2022-12-15] MEDS: CALCIUM/VITAMIN D 500 MG TAB PO SCH (08:18)
[2022-12-15] MEDS: ENOXAPARIN 40MG/0.4ML SYRINGE (J1650 PER 10MG) SC SCH (08:18)
[2022-12-15] MEDS: LACTOBACILLUS ACIDOPHILUS CAP (BACID) PO SCH (08:19)
[2022-12-15] MEDS: THIAMINE 100 MG TAB PO SCH (08:19)
[2022-12-15] MEDS: CALCIUM CARBONATE 500 MG CHEW U/D PO SCH (08:19)
[2022-12-15] MEDS: LOSARTAN 50MG TABLET PO SCH (08:20)
[2022-12-15] MEDS: SERTRALINE HCL 25 MG TABLET PO SCH (08:20)
[2022-12-15] MEDS: NICOTINE 21MG/24HR 1 EA TRANSDERMAL TD SCH (08:20)
[2022-12-15] MEDS: FIDAXOMICIN 200 MG TAB (DIFICID) PO SCH (08:20)
[2022-12-15] MEDS ORDERED: CALCIUM GLUCONATE 1,000 MG in D5W MINI-BAG PLUS 100 ML IV ONE (08:45)
[2022-12-15] MEDS ORDERED: MAGN400T2 PO (08:50)
[2022-12-15] MEDS ORDERED: CALCD50TA PO (08:50)
[2022-12-15] MEDS ORDERED: FIDA200TA PO (08:50)
[2022-12-15] MEDS ORDERED: NICO21PAT TD (08:50)
[2022-12-15] MEDS ORDERED: RISATAB3 PO (08:50)
[2022-12-15] MEDS ORDERED: MAGNESIUM OXIDE 400MG TAB (MAG-OX) PO SCH (09:00)
[2022-12-15] MEDS ORDERED: MULTIVITAMINS/MINERALS THERAP 1 TAB PO SCH (09:00)
[2022-12-15] MEDS ORDERED: FOLIC ACID 1MG TAB PO SCH (09:00)
[2022-12-15 14:09] LABS: ANTINUCLEAR ANTIBODIES DIRECT Negative (Negative)
[2022-12-16 23:07] LABS: HEPATITIS C QUANTITATION HCV Not Detected IU/mL (.)
== END 2022-12-15 12:58 | disposition home or self-care (01) | DRG 425 ==
LOC: M ED 08:47 → M ED INP 16:35 → M PCU 19:14 → M MSPAV 12-14 15:54
PROVIDERS: ADMIT Internal Medicine; ATTEND General Practice
DX: E87.6 Hypokalemia (principal); E87.20 Acidosis, unspecified; A04.72 Enterocolitis due to Clostridium difficile, not specified as recurrent; I47.1 Supraventricular tachycardia; E83.42 Hypomagnesemia; E83.51 Hypocalcemia; I10 Essential (primary) hypertension; G56.90 Unspecified mononeuropathy of unspecified upper limb; G47.00 Insomnia, unspecified; J44.9 Chronic obstructive pulmonary disease, unspecified; R94.31 Abnormal electrocardiogram [ECG] [EKG]; E78.5 Hyperlipidemia, unspecified; F17.210 Nicotine dependence, cigarettes, uncomplicated; R20.0 Anesthesia of skin; F10.10 Alcohol abuse, uncomplicated; Z79.899 Other long term (current) drug therapy; Z88.0 Allergy status to penicillin

== ENCOUNTER → 2022-12-21 | Outpatient (CLI) | payer OTHER ==
[~2022-12-21] MED LIST changes: +CALCD50TA PO; +CYAN1000VL IM; +FIDA200TA PO; +LOSA50TA28 PO; +RISATAB3 PO; +SERT25TA21 PO
[2022-12-21 10:23] LABS: BASO # 0.1 10^3/uL (0.0-0.2); BASO % 1.2 % (0.0-1.0); EOS # 0.1 10^3/uL (0.0-0.5); EOS % 1.3 % (0.0-3.0); HEMATOCRIT 37.7 % (36.0-47.0); HEMOGLOBIN 12.6 g/dl (12.0-15.5); LYMPH # 2.4 10^3/uL (1.5-5.0); LYMPH % 23.5 % (24.0-44.0); MEAN CORPUSCULAR HEMOGLOBIN 33.6 pg (27.0-33.0); MEAN CORPUSCULAR HGB CONC 33.4 g/dl (32.0-36.5); MEAN CORPUSCULAR VOLUME 100.5 fl (80.0-96.0); MONO % 10.3 % (2.0-8.0); NEUTROPHILS # 6.3 10^3/uL (1.5-8.5); NEUTROPHILS % 63.1 % (36.0-66.0); PLATELET COUNT, AUTOMATED 305 10^3/uL (150-450); RED BLOOD COUNT 3.75 10^6/uL (4.00-5.40)
[2022-12-21 10:54] LABS: ALBUMIN 3.9 G/DL (3.2-5.2); BILIRUBIN,TOTAL 0.6 MG/DL (0.3-1.2); CALCIUM LEVEL 10.8 MG/DL (8.5-10.1); CREATININE FOR GFR 1.25 MG/DL (0.55-1.30); GLOMERULAR FILTRATION RATE 47.2 (>51); MAGNESIUM LEVEL 2.3 MG/DL (1.8-2.4); POTASSIUM SERUM 5.1 MMOL/L (3.5-5.1); TOTAL PROTEIN 7.6 G/DL (5.7-8.2)
== END ==
LOC: M LAB 09:47
PROVIDERS: ATTEND Nurse Practitioner Family
DX: E83.51 Hypocalcemia (principal); K70.9 Alcoholic liver disease, unspecified; D64.9 Anemia, unspecified; E83.42 Hypomagnesemia

== ENCOUNTER → 2023-01-13 | Outpatient (REF) | payer OTHER, MEDICAID | LOC: M SFHCDERM 17:43 | PROVIDERS: ATTEND Nurse Practitioner Family | DX: L98.9 Disorder of the skin and subcutaneous tissue, unspecified (principal) ==

== ENCOUNTER → 2023-01-20 | Outpatient (CLI) | payer OTHER, MEDICAID ==
[2023-01-20 13:51] LABS: CLOSTRIDIUM DIFFICILE PCR POSITIVE (NEGATIVE)
== END ==
LOC: M LAB 10:27
PROVIDERS: ATTEND Internal Medicine Gastroenterology
DX: R19.7 Diarrhea, unspecified (principal)

== ENCOUNTER → 2023-02-17 | Outpatient (CLI) | payer OTHER ==
[~2023-02-17] MED LIST changes: +GASTROGRAFIN SOLUTION 30ML ONE; +ISOVUE-370 76% 100ML VIAL ONE
== END ==
LOC: M PLAIMG 10:51
PROVIDERS: ATTEND Nurse Practitioner Family
DX: D36.15 Benign neoplasm of peripheral nerves and autonomic nervous system of abdomen (principal)

== ENCOUNTER 2023-06-27 10:35 | Emergency (ER) | payer OTHER ==
[~2023-06-27] VITALS: Ht 167.6 cm; Wt 64.6 kg
[~2023-06-27 10:35] MED LIST changes: -GASTROGRAFIN SOLUTION 30ML ONE; -ISOVUE-370 76% 100ML VIAL ONE
[2023-06-27 13:07] LABS: BASO # 0.1 10^3/uL (0.0-0.2); BASO % 0.6 % (0.0-1.0); EOS % 0.4 % (0.0-3.0); HEMATOCRIT 37.8 % (36.0-47.0); HEMOGLOBIN 12.9 g/dl (12.0-15.5); LYMPH # 2.8 10^3/uL (1.5-5.0); LYMPH % 29.8 % (24.0-44.0); MEAN CORPUSCULAR HEMOGLOBIN 32.9 pg (27.0-33.0); MEAN CORPUSCULAR HGB CONC 34.1 g/dl (32.0-36.5); MEAN CORPUSCULAR VOLUME 96.4 fl (80.0-96.0); MONO # 0.6 10^3/uL (0.0-0.8); MONO % 6.7 % (2.0-8.0); NEUTROPHILS # 5.9 10^3/uL (1.5-8.5); NEUTROPHILS % 62.3 % (36.0-66.0); PLATELET COUNT, AUTOMATED 266 10^3/uL (150-450); RED BLOOD COUNT 3.92 10^6/uL (4.00-5.40); WHITE BLOOD COUNT 9.4 10^3/uL (4.0-10.0)
[2023-06-27] MEDS: KETOROLAC 30 MG/ML 1ML VIAL IV ONE (13:11)
[2023-06-27 13:34] LABS: LIPASE 24 U/L (12-53)
[2023-06-27 13:36] LABS: ALBUMIN 3.9 G/DL (3.2-5.2); ALKALINE PHOSPHATASE 93 U/L (46-116); ALT/SGPT 40 U/L (7.0-40); AST/SGOT 30 U/L (<34); BILIRUBIN,DIRECT 0.2 MG/DL (<0.4); BILIRUBIN,TOTAL 0.5 MG/DL (0.3-1.2); BLOOD UREA NITROGEN 8 MG/DL (9-23); CALCIUM LEVEL 9.3 MG/DL (8.5-10.1); CARBON DIOXIDE LEVEL 27 MMOL/L (20-31); CHLORIDE LEVEL 105 MMOL/L (98-107); CREATININE FOR GFR 0.53 MG/DL (0.55-1.30); GLOMERULAR FILTRATION RATE > 60.0 (>51); GLUCOSE, FASTING 99 MG/DL (60-100); POTASSIUM SERUM 3.2 MMOL/L (3.5-5.1); SODIUM LEVEL 140 MMOL/L (136-145); TOTAL PROTEIN 6.8 G/DL (5.7-8.2)
[2023-06-27] MEDS ORDERED: ISOVUE-370 76% 100ML VIAL As Ordered ONE (13:40)
[2023-06-27] MEDS ORDERED: PYRI1TAB5 PO (14:30)
[2023-06-27] MEDS: POTASSIUM CHLORIDE 10MEQ SR TABLET PO ONE (14:39)
[2023-06-27 15:36] VITALS: BP 183/79; TEMP 98.1; O2SAT 99
== END 2023-06-27 15:42 | disposition home or self-care (01) ==
LOC: M ED 10:35
DX: M54.50 Low back pain, unspecified (principal); D35.00 Benign neoplasm of unspecified adrenal gland; E87.6 Hypokalemia; J44.9 Chronic obstructive pulmonary disease, unspecified; I10 Essential (primary) hypertension; K57.92 Diverticulitis of intestine, part unspecified, without perforation or abscess without bleeding; F10.10 Alcohol abuse, uncomplicated; F17.200 Nicotine dependence, unspecified, uncomplicated; Z88.0 Allergy status to penicillin; Z79.52 Long term (current) use of systemic steroids; Z79.02 Long term (current) use of antithrombotics/antiplatelets; Z79.811 Long term (current) use of aromatase inhibitors; Z79.899 Other long term (current) drug therapy
CPT/HCPCS: 74177; 80048; 80076; 81001; 83690; 85025; 87086; 96374; 99284; J1885; Q9967

== ENCOUNTER → 2023-07-10 | Outpatient (CLI) | payer OTHER ==
[~2023-07-10] MED LIST changes: +PYRI1TAB5 PO
[2023-07-10 12:55] LABS: BASO # 0.1 10^3/uL (0.0-0.2); BASO % 0.5 % (0.0-1.0); EOS % 0.2 % (0.0-3.0); HEMATOCRIT 40.5 % (36.0-47.0); HEMOGLOBIN 14.2 g/dl (12.0-15.5); LYMPH # 2.9 10^3/uL (1.5-5.0); LYMPH % 25.6 % (24.0-44.0); MEAN CORPUSCULAR HEMOGLOBIN 32.6 pg (27.0-33.0); MEAN CORPUSCULAR HGB CONC 35.1 g/dl (32.0-36.5); MEAN CORPUSCULAR VOLUME 92.9 fl (80.0-96.0); MONO # 0.8 10^3/uL (0.0-0.8); MONO % 6.7 % (2.0-8.0); NEUTROPHILS # 7.6 10^3/uL (1.5-8.5); NEUTROPHILS % 66.8 % (36.0-66.0); PLATELET COUNT, AUTOMATED 300 10^3/uL (150-450); RED BLOOD COUNT 4.36 10^6/uL (4.00-5.40); WHITE BLOOD COUNT 11.4 10^3/uL (4.0-10.0)
[2023-07-10 13:18] LABS: ALBUMIN 4.1 G/DL (3.2-5.2); ALKALINE PHOSPHATASE 109 U/L (46-116); ALT/SGPT 164 U/L (7.0-40); AST/SGOT 182 U/L (<34); BILIRUBIN,TOTAL 0.7 MG/DL (0.3-1.2); BLOOD UREA NITROGEN 10 MG/DL (9-23); CALCIUM LEVEL 8.8 MG/DL (8.5-10.1); CARBON DIOXIDE LEVEL 25 MMOL/L (20-31); CHLORIDE LEVEL 107 MMOL/L (98-107); CREATININE FOR GFR 0.61 MG/DL (0.55-1.30); GLOMERULAR FILTRATION RATE > 60.0 (>51); GLUCOSE, FASTING 104 MG/DL (60-100); MAGNESIUM LEVEL 1.6 MG/DL (1.8-2.4); POTASSIUM SERUM 3.1 MMOL/L (3.5-5.1); SODIUM LEVEL 140 MMOL/L (136-145); TOTAL PROTEIN 7.1 G/DL (5.7-8.2)
== END ==
LOC: M LAB 12:04
PROVIDERS: ATTEND Nurse Practitioner Family
DX: I10 Essential (primary) hypertension (principal); E83.42 Hypomagnesemia; D64.9 Anemia, unspecified

== ENCOUNTER → 2023-08-28 | Outpatient (CLI) | payer OTHER | LOC: M OUTALCOH 07:42 | PROVIDERS: ATTEND Psychiatry & Neurology Psychiatry | DX: F10.20 Alcohol dependence, uncomplicated (principal); Z72.0 Tobacco use ==

== ENCOUNTER 2023-09-04 07:50 | Outpatient (RCR) | payer OTHER | END 2023-09-05 | LOC: M OUTALCOH 07:50 | PROVIDERS: ATTEND Psychiatry & Neurology Psychiatry | DX: F10.20 Alcohol dependence, uncomplicated (principal); Z72.0 Tobacco use ==

== ENCOUNTER → 2023-10-03 | Outpatient (CLI) | payer MEDICAID, OTHER ==
[2023-10-03 14:16] LABS: CREATININE FOR GFR 0.58 MG/DL (0.55-1.30); GLOMERULAR FILTRATION RATE > 60.0 (>51)
== END ==
LOC: M PLALAB 08:54
PROVIDERS: ATTEND Nurse Practitioner Family
DX: R19.00 Intra-abdominal and pelvic swelling, mass and lump, unspecified site (principal)

== ENCOUNTER → 2023-10-09 | Outpatient (CLI) | payer OTHER ==
[2023-10-09 13:25] LABS: BASO # 0.1 10^3/uL (0.0-0.2); BASO % 0.7 % (0.0-1.0); EOS # 0.2 10^3/uL (0.0-0.5); EOS % 1.8 % (0.0-3.0); HEMATOCRIT 37.3 % (36.0-47.0); HEMOGLOBIN 12.2 g/dl (12.0-15.5); LYMPH # 3.1 10^3/uL (1.5-5.0); LYMPH % 32.6 % (24.0-44.0); MEAN CORPUSCULAR HEMOGLOBIN 32.8 pg (27.0-33.0); MEAN CORPUSCULAR HGB CONC 32.7 g/dl (32.0-36.5); MEAN CORPUSCULAR VOLUME 100.3 fl (80.0-96.0); MONO # 0.7 10^3/uL (0.0-0.8); MONO % 7.1 % (2.0-8.0); NEUTROPHILS # 5.5 10^3/uL (1.5-8.5); NEUTROPHILS % 57.5 % (36.0-66.0); PLATELET COUNT, AUTOMATED 273 10^3/uL (150-450); RED BLOOD COUNT 3.72 10^6/uL (4.00-5.40); WHITE BLOOD COUNT 9.5 10^3/uL (4.0-10.0)
[2023-10-09 13:56] LABS: ALBUMIN 3.9 G/DL (3.2-5.2); ALKALINE PHOSPHATASE 107 U/L (46-116); ALT/SGPT 31 U/L (7.0-40); AST/SGOT 24 U/L (<34); BILIRUBIN,TOTAL 0.3 MG/DL (0.3-1.2); BLOOD UREA NITROGEN 13 MG/DL (9-23); CALCIUM LEVEL 9.5 MG/DL (8.5-10.1); CARBON DIOXIDE LEVEL 29 MMOL/L (20-31); CHLORIDE LEVEL 107 MMOL/L (98-107); CHOLESTEROL LEVEL 179 MG/DL (<200); CREATININE FOR GFR 0.71 MG/DL (0.55-1.30); GLOMERULAR FILTRATION RATE > 60.0 (>51); GLUCOSE, FASTING 103 MG/DL (60-100); HDL CHOLESTEROL 89.1 MG/DL (>40); LDL CHOLESTEROL 50.3 MG/DL (<100); MAGNESIUM LEVEL 1.8 MG/DL (1.8-2.4); NON-HDL-C 89.9 MG/DL; POTASSIUM SERUM 4.8 MMOL/L (3.5-5.1); SODIUM LEVEL 140 MMOL/L (136-145); TOTAL PROTEIN 6.9 G/DL (5.7-8.2); TRIGLYCERIDES LEVEL 198 MG/DL (<150)
[2023-10-09 13:57] LABS: THYROID STIMULATING HORMONE 0.697 uIU/ML (0.55-4.78); TOTAL 25(OH) VITAMIN D 28.7 NG/ML (20.0-100.0)
[2023-10-09 13:58] LABS: FREE T4 0.76 NG/DL (0.89-1.76)
[2023-10-09 14:04] LABS: HEMOGLOBIN A1c 5.6 % (4.0-6.0)
== END ==
LOC: M PLALAB 09:18
PROVIDERS: ATTEND Nurse Practitioner Family
DX: E78.5 Hyperlipidemia, unspecified (principal); Z13.1 Encounter for screening for diabetes mellitus; E55.9 Vitamin D deficiency, unspecified; K70.9 Alcoholic liver disease, unspecified; D64.9 Anemia, unspecified

== ENCOUNTER → 2023-10-10 | Outpatient (CLI) | payer OTHER ==
[~2023-10-10] MED LIST changes: +GASTROGRAFIN SOLUTION 30ML As Ordered ONE; +ISOVUE-370 76% 100ML VIAL As Ordered ONE
== END ==
LOC: M RAD 14:04
PROVIDERS: ATTEND Nurse Practitioner Family
DX: D36.15 Benign neoplasm of peripheral nerves and autonomic nervous system of abdomen (principal); R91.8 Other nonspecific abnormal finding of lung field
CPT/HCPCS: 71260; 74177; Q9963; Q9967

== ENCOUNTER 2023-11-02 10:00 | Outpatient (RCR) | payer OTHER ==
[~2023-11-02 10:00] MED LIST changes: -GASTROGRAFIN SOLUTION 30ML As Ordered ONE; -ISOVUE-370 76% 100ML VIAL As Ordered ONE
== END 2023-11-05 ==
LOC: M OUTALCOH 10:00
PROVIDERS: ATTEND Psychiatry & Neurology Psychiatry
DX: F10.20 Alcohol dependence, uncomplicated (principal); Z72.0 Tobacco use

== ENCOUNTER → 2023-11-22 | Outpatient (REF) | payer OTHER | LOC: M LAB REF 16:10 | PROVIDERS: ATTEND Physician Assistant Medical | DX: B34.9 Viral infection, unspecified (principal) ==

== ENCOUNTER → 2023-12-06 | Outpatient (RCR) | payer OTHER | LOC: M OUTALCOH 11-08 16:00 | PROVIDERS: ATTEND Psychiatry & Neurology Psychiatry | DX: F10.20 Alcohol dependence, uncomplicated (principal); Z72.0 Tobacco use ==

== ENCOUNTER 2023-12-12 20:39 | Inpatient (IN) | payer OTHER ==
[~2023-12-12] VITALS: Ht 167.6 cm; Wt 75.2 kg
[2023-12-12 22:16] LABS: BASO # 0.1 10^3/uL (0.0-0.2); BASO % 0.6 % (0.0-1.0); EOS # 0.2 10^3/uL (0.0-0.5); EOS % 1.4 % (0.0-3.0); HEMATOCRIT 39.6 % (36.0-47.0); HEMOGLOBIN 13.8 g/dl (12.0-15.5); LYMPH # 3.1 10^3/uL (1.5-5.0); MEAN CORPUSCULAR HEMOGLOBIN 32.4 pg (27.0-33.0); MEAN CORPUSCULAR HGB CONC 34.8 g/dl (32.0-36.5); MONO # 0.9 10^3/uL (0.0-0.8); MONO % 6.9 % (2.0-8.0); NEUTROPHILS # 8.6 10^3/uL (1.5-8.5); NEUTROPHILS % 66.8 % (36.0-66.0); PLATELET COUNT, AUTOMATED 240 10^3/uL (150-450); RED BLOOD COUNT 4.26 10^6/uL (4.00-5.40); WHITE BLOOD COUNT 12.8 10^3/uL (4.0-10.0)
[2023-12-12 22:44] LABS: LIPASE 240 U/L (12-53)
[2023-12-12 22:46] LABS: ALBUMIN 3.9 G/DL (3.2-5.2); ALKALINE PHOSPHATASE 172 U/L (46-116); ALT/SGPT 241 U/L (7.0-40); AST/SGOT 134 U/L (<34); BILIRUBIN,DIRECT 0.4 MG/DL (<0.4); BLOOD UREA NITROGEN 12 MG/DL (9-23); CALCIUM LEVEL 9.1 MG/DL (8.5-10.1); CARBON DIOXIDE LEVEL 26 MMOL/L (20-31); CHLORIDE LEVEL 104 MMOL/L (98-107); CREATININE FOR GFR 0.63 MG/DL (0.55-1.30); GLOMERULAR FILTRATION RATE > 60.0 (>51); GLUCOSE, FASTING 134 MG/DL (60-100); POTASSIUM SERUM 3.8 MMOL/L (3.5-5.1); SODIUM LEVEL 134 MMOL/L (136-145)
[2023-12-13] MEDS: KETOROLAC 30 MG/ML 1ML VIAL IV ONE (04:31)
[2023-12-13] MEDS: NS 1,000 ML IV ONE (05:20)
[2023-12-13] MEDS: MORPHINE 4 MG/ML 1ML VIAL IV ONE (05:20)
[2023-12-13] MEDS ORDERED: ISOVUE-370 76% 100ML VIAL As Ordered ONE (05:20)
[2023-12-13] MEDS: KCL 20MEQ IN D5/0.45NS 1000ML 1,000 ML IV SCH (06:46)
[2023-12-13] MEDS ORDERED: CYCL-707 PO (06:55)
[2023-12-13] MEDS ORDERED: HYDR-3363 PO (06:55)
[2023-12-13] MEDS ORDERED: SUCR1TAB56 PO (06:55)
[2023-12-13] MEDS ORDERED: MULT-40 PO (06:55)
[2023-12-13] MEDS ORDERED: MAGN400T2 PO (06:55)
[2023-12-13] MEDS ORDERED: NALT50TA4 PO (06:55)
[2023-12-13] MEDS ORDERED: TRIA1CR80 TOP (06:55)
[2023-12-13] MEDS ORDERED: KETO2SHA8 TOP (06:55)
[2023-12-13] MEDS ORDERED: VENL150C43 PO (06:55)
[2023-12-13] MEDS ORDERED: QUET100T2 PO (06:55)
[2023-12-13] MEDS ORDERED: QUET1TAB17 PO (06:55)
[2023-12-13] MEDS ORDERED: IBUP-1764 PO (06:56)
[2023-12-13] MEDS ORDERED: HOME MED LIST COMPLETE! XX SCH (07:00)
[2023-12-13] MEDS ORDERED: ALBUTEROL 90 MCG/ACT 8GM HFA INHALER INH PRN (07:25)
[2023-12-13] MEDS ORDERED: QUEtiapine FUMARATE 25 MG TAB PO PRN (07:25)
[2023-12-13] MEDS: VENLAFAXINE **XR** 75MG CAPSULE PO SCH (08:01)
[2023-12-13] MEDS: ACETAMINOPHEN TAB 650MG DOSE (2X325MG) PO PRN (08:01)
[2023-12-13] MEDS: SUCRALFATE 1 GM TAB PO SCH (08:01)
[2023-12-13] MEDS: LOSARTAN 50MG TABLET PO SCH (08:02)
[2023-12-13] MEDS: MAGNESIUM OXIDE 400MG TAB (MAG-OX) PO SCH (08:02)
[2023-12-13 08:40] VITALS: BP 172/89; TEMP 97; O2SAT 97
[2023-12-13] MEDS ORDERED: LORazepam 2 MG TAB PO PRN (09:10)
[2023-12-13] MEDS: THIAMINE 100 MG TAB PO SCH (10:02)
[2023-12-13] MEDS: MULTIVITAMINS/MINERALS THERAP 1 TAB PO SCH (10:02)
[2023-12-13] MEDS: PANTOPRAZOLE 40MG VIAL IV SCH (10:02)
[2023-12-13] MEDS: METOCLOPRAMIDE INJ 10MG/2ML VIAL IV PRN (10:02)
[2023-12-13] MEDS: FOLIC ACID 1MG TAB PO SCH (10:02)
[2023-12-13] MEDS: LR 1,000 ML IV SCH (10:08)
[2023-12-13 10:36] VITALS: BP 172/89
[2023-12-13] MEDS: MORPHINE 2 MG/ML 1ML VIAL IV PRN (11:40)
[2023-12-13 17:49] VITALS: BP 165/81
[2023-12-13] MEDS: CYCLOBENZAPRINE 10MG TABLET PO PRN (18:28)
[2023-12-13 19:51] VITALS: BP 177/95
[2023-12-13 19:58] VITALS: BP 177/95; TEMP 97; O2SAT 98
[2023-12-13] MEDS: PERCOCET 5MG/325MG TAB PO PRN (20:08)
[2023-12-13] MEDS: QUEtiapine FUMARATE 100 MG TAB PO SCH (20:08)
[2023-12-14 04:00] VITALS: BP 148/75; TEMP 96.8; O2SAT 95
[2023-12-14 05:58] LABS: HEMATOCRIT 39.5 % (36.0-47.0); HEMOGLOBIN 13.1 g/dl (12.0-15.5); MEAN CORPUSCULAR HEMOGLOBIN 32.3 pg (27.0-33.0); MEAN CORPUSCULAR HGB CONC 33.2 g/dl (32.0-36.5); MEAN CORPUSCULAR VOLUME 97.3 fl (80.0-96.0); PLATELET COUNT, AUTOMATED 200 10^3/uL (150-450); RED BLOOD COUNT 4.06 10^6/uL (4.00-5.40); WHITE BLOOD COUNT 13.3 10^3/uL (4.0-10.0)
[2023-12-14 06:00] VITALS: BP 158/82
[2023-12-14 06:34] LABS: ALBUMIN 3.1 G/DL (3.2-5.2); ALKALINE PHOSPHATASE 143 U/L (46-116); ALT/SGPT 129 U/L (7.0-40); AST/SGOT 53 U/L (<34); BILIRUBIN,TOTAL 0.7 MG/DL (0.3-1.2); BLOOD UREA NITROGEN < 5 MG/DL (9-23); CALCIUM LEVEL 8.7 MG/DL (8.5-10.1); CARBON DIOXIDE LEVEL 24 MMOL/L (20-31); CHLORIDE LEVEL 107 MMOL/L (98-107); CREATININE FOR GFR 0.56 MG/DL (0.55-1.30); GLOMERULAR FILTRATION RATE > 60.0 (>51); GLUCOSE, FASTING 110 MG/DL (60-100); POTASSIUM SERUM 4.7 MMOL/L (3.5-5.1); SODIUM LEVEL 137 MMOL/L (136-145); TOTAL PROTEIN 6.3 G/DL (5.7-8.2)
[2023-12-14 08:34] VITALS: BP 145/81
[2023-12-14 09:17] LABS: LIPASE 608 U/L (12-53)
[2023-12-14 12:00] VITALS: BP 139/84; TEMP 97; O2SAT 97
[2023-12-14] MEDS ORDERED: PERCOCET PO (16:11)
[2023-12-15] MEDS ORDERED: CEFD1CAP9 PO (07:57)
== END 2023-12-14 16:36 | disposition home or self-care (01) | DRG 282 ==
LOC: M ED 20:39 → M ED INP 12-13 07:24 → M MSPAV 12-13 08:58
PROVIDERS: ADMIT Hospitalist; ATTEND Hospitalist
DX: K85.20 Alcohol induced acute pancreatitis without necrosis or infection (principal); I10 Essential (primary) hypertension; E78.5 Hyperlipidemia, unspecified; J44.9 Chronic obstructive pulmonary disease, unspecified; F41.9 Anxiety disorder, unspecified; F32.A Depression, unspecified; G47.00 Insomnia, unspecified; F17.210 Nicotine dependence, cigarettes, uncomplicated; Z79.51 Long term (current) use of inhaled steroids; Z79.899 Other long term (current) drug therapy; Z88.0 Allergy status to penicillin; F10.10 Alcohol abuse, uncomplicated

== ENCOUNTER 2024-01-01 10:56 | Outpatient (RCR) | payer OTHER ==
[~2024-01-01 10:56] MED LIST changes: +CEFD1CAP9 PO; +CYCL-707 PO; +HYDR-3363 PO; +IBUP-1764 PO; +KETO2SHA8 TOP; +MULT-40 PO; +NALT50TA4 PO; +QUET100T2 PO; +QUET1TAB17 PO; +SUCR1TAB56 PO; +TRIA1CR80 TOP; +VENL150C43 PO
== END 2024-01-06 ==
LOC: M OUTALCOH 10:56
PROVIDERS: ATTEND Psychiatry & Neurology Psychiatry
DX: F10.20 Alcohol dependence, uncomplicated (principal); Z72.0 Tobacco use

== ENCOUNTER → 2024-02-05 | Outpatient (RCR) | payer OTHER | LOC: M OUTALCOH 01-10 08:06 | PROVIDERS: ATTEND Psychiatry & Neurology Child & Adolescent Psychiatry | DX: F10.20 Alcohol dependence, uncomplicated (principal); Z72.0 Tobacco use ==

== ENCOUNTER → 2024-02-06 | Outpatient (CLI) | payer OTHER ==
[2024-02-06 13:32] LABS: LIPASE 32 U/L (12-53)
[2024-02-06 13:34] LABS: ALBUMIN 3.7 G/DL (3.2-5.2); ALKALINE PHOSPHATASE 141 U/L (46-116); ALT/SGPT 131 U/L (7.0-40); AST/SGOT 160 U/L (<34); BILIRUBIN,TOTAL 0.4 MG/DL (0.3-1.2); BLOOD UREA NITROGEN 16 MG/DL (9-23); CARBON DIOXIDE LEVEL 27 MMOL/L (20-31); CHLORIDE LEVEL 108 MMOL/L (98-107); CREATININE FOR GFR 0.73 MG/DL (0.55-1.30); GLOMERULAR FILTRATION RATE > 60.0 (>51); GLUCOSE, FASTING 133 MG/DL (60-100); MAGNESIUM LEVEL 1.2 MG/DL (1.8-2.4); POTASSIUM SERUM 4.5 MMOL/L (3.5-5.1); SODIUM LEVEL 142 MMOL/L (136-145); TOTAL PROTEIN 6.8 G/DL (5.7-8.2)
[2024-02-06 13:37] LABS: BASO # 0.1 10^3/uL (0.0-0.2); BASO % 0.8 % (0.0-1.0); EOS # 0.1 10^3/uL (0.0-0.5); EOS % 0.9 % (0.0-3.0); HEMOGLOBIN 11.8 g/dl (12.0-15.5); LYMPH # 2.2 10^3/uL (1.5-5.0); LYMPH % 17.8 % (24.0-44.0); MEAN CORPUSCULAR HEMOGLOBIN 31.1 pg (27.0-33.0); MEAN CORPUSCULAR HGB CONC 32.8 g/dl (32.0-36.5); MONO # 0.7 10^3/uL (0.0-0.8); MONO % 5.7 % (2.0-8.0); NEUTROPHILS % 74.4 % (36.0-66.0); PLATELET COUNT, AUTOMATED 281 10^3/uL (150-450); RED BLOOD COUNT 3.79 10^6/uL (4.00-5.40); WHITE BLOOD COUNT 12.1 10^3/uL (4.0-10.0)
[2024-02-06 13:48] LABS: APPEARANCE, URINE TURBID (CLEAR); BACTERIA, URINE AUTO NEGATIVE (NEGATIVE); BILIRUBIN, URINE AUTO NEGATIVE (NEGATIVE); BLOOD, URINE BLOOD NEGATIVE (NEGATIVE); COLOR, URINE YELLOW (YELLOW); GLUCOSE, URINE (UA) AUTO 1+ mg/dL (NEGATIVE); KETONE, URINE AUTO NEGATIVE (NEGATIVE); LEUKOCYTE ESTERASE, URINE AUTO NEGATIVE (NEGATIVE); MUCUS, URINE SMALL (NEGATIVE); NITRITE, URINE AUTO NEGATIVE (NEGATIVE); PROTEIN, URINE AUTO NEGATIVE (NEGATIVE); RBC, URINE AUTO 0 /HPF (0-3); SPECIFIC GRAVITY URINE AUTO 1.017 (1.002-1.035); SQUAMOUS EPITHELIAL CELL UR AU 1 /HPF (0-6); URIC ACID CRYSTALS MODERATE; UROBILINOGEN, URINE AUTO 0.2 mg/dL (0.0-2.0); WBC, URINE AUTO 2 /HPF (0-3)
== END ==
LOC: M LAB 10:13 → M PLALAB 10:13
PROVIDERS: ATTEND Nurse Practitioner Family
DX: K70.9 Alcoholic liver disease, unspecified (principal); E83.42 Hypomagnesemia; D64.9 Anemia, unspecified

== ENCOUNTER 2024-03-04 08:00 | Outpatient (RCR) | payer OTHER | END 2024-03-07 | LOC: M OUTALCOH 08:00 | PROVIDERS: ATTEND Psychiatry & Neurology Psychiatry | DX: F10.20 Alcohol dependence, uncomplicated (principal); Z72.0 Tobacco use ==

== ENCOUNTER 2024-04-01 09:37 | Outpatient (RCR) | payer OTHER | END 2024-04-06 | LOC: M OUTALCOH 09:37 | PROVIDERS: ATTEND Psychiatry & Neurology Psychiatry | DX: F10.20 Alcohol dependence, uncomplicated (principal); Z72.0 Tobacco use ==

== ENCOUNTER → 2024-04-02 | Outpatient (CLI) | payer MEDICAID, OTHER ==
[2024-04-02 19:06] LABS: LIPASE 50 U/L (12-53)
[2024-04-02 19:08] LABS: AMYLASE 71 U/L (30-118)
[2024-04-02 19:09] LABS: HEMOGLOBIN A1c 6.1 % (4.0-6.0)
[2024-04-02 19:11] LABS: ALBUMIN 3.8 G/DL (3.2-5.2); ALKALINE PHOSPHATASE 151 U/L (35-104); ALT/SGPT 46 U/L (7.0-40); AST/SGOT 50 U/L (<34); BILIRUBIN,TOTAL 0.2 MG/DL (0.3-1.2); BLOOD UREA NITROGEN 17 MG/DL (9-23); CALCIUM LEVEL 10.7 MG/DL (8.5-10.1); CARBON DIOXIDE LEVEL 24 MMOL/L (20-31); CHLORIDE LEVEL 107 MMOL/L (98-107); CREATININE FOR GFR 0.74 MG/DL (0.55-1.30); GLOMERULAR FILTRATION RATE > 60.0 (>51); GLUCOSE, FASTING 120 MG/DL (60-100); POTASSIUM SERUM 5.3 MMOL/L (3.5-5.1); SODIUM LEVEL 138 MMOL/L (136-145); TOTAL PROTEIN 7.6 G/DL (5.7-8.2)
== END ==
LOC: M PLALAB 15:11
PROVIDERS: ATTEND Nurse Practitioner Adult Health
DX: K85.20 Alcohol induced acute pancreatitis without necrosis or infection (principal); R73.9 Hyperglycemia, unspecified

== ENCOUNTER 2024-04-08 10:48 | Outpatient (RCR) | payer OTHER | END 2024-05-07 | LOC: M OUTALCOH 10:48 | PROVIDERS: ATTEND Psychiatry & Neurology Psychiatry | DX: F10.20 Alcohol dependence, uncomplicated (principal); Z72.0 Tobacco use ==

== ENCOUNTER 2024-06-01 22:43 | Emergency (ER) | payer MEDICAID, OTHER ==
[~2024-06-01] VITALS: Ht 167.6 cm; Wt 68.9 kg
[2024-06-01 22:51] VITALS: TEMP 100.7
[2024-06-02] MEDS: ACETAMINOPHEN 325 MG TAB PO ONE (00:35)
[2024-06-02] MEDS ORDERED: NIRM1TAB13 PO (00:43)
[2024-06-02 00:47] VITALS: BP 117/66; O2SAT 94
== END 2024-06-02 01:10 | disposition home or self-care (01) ==
LOC: EDBD 22:43 → M ED 22:43
DX: U07.1 COVID-19 (principal); I10 Essential (primary) hypertension; E78.5 Hyperlipidemia, unspecified; F32.A Depression, unspecified; F10.10 Alcohol abuse, uncomplicated; Z79.899 Other long term (current) drug therapy; Z88.0 Allergy status to penicillin

== ENCOUNTER → 2024-06-07 | Outpatient (CLI) | payer OTHER ==
[~2024-06-07] MED LIST changes: +NIRM1TAB13 PO
[2024-06-07 16:01] LABS: BASO % 0.4 % (0.0-1.0); EOS # 0.2 10^3/uL (0.0-0.5); EOS % 1.7 % (0.0-3.0); HEMATOCRIT 38.4 % (36.0-47.0); HEMOGLOBIN 12.1 g/dl (12.0-15.5); LYMPH # 3.4 10^3/uL (1.5-5.0); LYMPH % 31.3 % (24.0-44.0); MEAN CORPUSCULAR HEMOGLOBIN 29.4 pg (27.0-33.0); MEAN CORPUSCULAR HGB CONC 31.5 g/dl (32.0-36.5); MEAN CORPUSCULAR VOLUME 93.4 fl (80.0-96.0); MONO # 0.6 10^3/uL (0.0-0.8); NEUTROPHILS # 6.7 10^3/uL (1.5-8.5); NEUTROPHILS % 61.3 % (36.0-66.0); PLATELET COUNT, AUTOMATED 381 10^3/uL (150-450); RED BLOOD COUNT 4.11 10^6/uL (4.00-5.40); WHITE BLOOD COUNT 10.9 10^3/uL (4.0-10.0)
[2024-06-07 16:04] LABS: IRON (FE) 26 UG/DL (50-170); PERCENT SATURATION 7.5 % (13.2-45.0); TOTAL IRON BINDING CAPACITY 347 UG/DL (250-425)
[2024-06-07 16:05] LABS: ALBUMIN 3.8 G/DL (3.2-5.2); ALKALINE PHOSPHATASE 79 U/L (35-104); ALT/SGPT 22 U/L (7.0-40); AST/SGOT 18 U/L (<34); BILIRUBIN,TOTAL 0.2 MG/DL (0.3-1.2); BLOOD UREA NITROGEN 15 MG/DL (9-23); CALCIUM LEVEL 10.1 MG/DL (8.5-10.1); CARBON DIOXIDE LEVEL 28 MMOL/L (20-31); CHLORIDE LEVEL 106 MMOL/L (98-107); CHOLESTEROL LEVEL 134 MG/DL (<200); CHOLESTEROL RISK RATIO 2.93 (<5); CREATININE FOR GFR 0.66 MG/DL (0.55-1.30); GLOMERULAR FILTRATION RATE > 60.0 (>51); GLUCOSE, FASTING 95 MG/DL (60-100); HDL CHOLESTEROL 45.7 MG/DL (>40); LDL CHOLESTEROL 43.9 MG/DL (<100); NON-HDL-C 88.3 MG/DL; POTASSIUM SERUM 5.1 MMOL/L (3.5-5.1); SODIUM LEVEL 137 MMOL/L (136-145); TOTAL PROTEIN 7.3 G/DL (5.7-8.2); TRIGLYCERIDES LEVEL 222 MG/DL (<150)
[2024-06-07 16:06] LABS: FREE T4 1.16 NG/DL (0.89-1.76); THYROID STIMULATING HORMONE 1.002 uIU/ML (0.55-4.78)
[2024-06-07 16:07] LABS: VITAMIN B12 LEVEL 753 PG/ML (211-911)
== END ==
LOC: M PLALAB 12:06
PROVIDERS: ATTEND Nurse Practitioner Family
DX: D64.9 Anemia, unspecified (principal)

== ENCOUNTER → 2024-06-07 | Outpatient (RCR) | payer OTHER, MEDICAID | LOC: M OUTALCOH 05-27 12:26 | PROVIDERS: ATTEND Psychiatry & Neurology Psychiatry | DX: F10.20 Alcohol dependence, uncomplicated (principal); Z72.0 Tobacco use ==

== ENCOUNTER → 2024-07-05 | Outpatient (RCR) | payer OTHER | LOC: M OUTALCOH 06-10 12:04 | PROVIDERS: ATTEND Psychiatry & Neurology Psychiatry | DX: F10.20 Alcohol dependence, uncomplicated (principal); Z72.0 Tobacco use ==

== ENCOUNTER → 2024-07-25 | Outpatient (CLI) | payer OTHER ==
[2024-07-25 15:42] LABS: LIPASE 17 U/L (12-53)
[2024-07-25 15:44] LABS: ALBUMIN 3.8 G/DL (3.2-5.2); ALKALINE PHOSPHATASE 87 U/L (35-104); ALT/SGPT 20 U/L (7.0-40); AST/SGOT 15 U/L (<34); BILIRUBIN,DIRECT < 0.1 MG/DL (<0.4); BILIRUBIN,TOTAL < 0.2 MG/DL (0.3-1.2)
== END ==
LOC: M PLALAB 10:37
PROVIDERS: ATTEND Internal Medicine Gastroenterology
DX: K85.20 Alcohol induced acute pancreatitis without necrosis or infection (principal)

== ENCOUNTER 2024-08-01 11:11 | Day surgery (SDC) | payer OTHER ==
[~2024-08-01] VITALS: Ht 165.1 cm; Wt 64.3 kg
[~2024-08-01 11:11] MED LIST changes: +FAMO1TAB11 PO; +ROSU20TA86 PO
[2024-08-01] MEDS ORDERED: propofoL 200 MG/20 ML VIAL As Ordered ONE (13:00)
[2024-08-01] MEDS ORDERED: GLYCOPYRROLATE INJ 0.2 MG/ML 2 ML VIAL As Ordered ONE (13:01)
[2024-08-01 13:20] VITALS: TEMP 97.4
[2024-08-01 13:35] VITALS: BP 109/53; O2SAT 97
== END 2024-08-01 13:39 | disposition home or self-care (01) ==
LOC: M OPP 11:11
PROVIDERS: ATTEND Internal Medicine Gastroenterology
DX: D12.3 Benign neoplasm of transverse colon (principal); K57.30 Diverticulosis of large intestine without perforation or abscess without bleeding; K64.8 Other hemorrhoids; D50.9 Iron deficiency anemia, unspecified; R19.4 Change in bowel habit; Z88.0 Allergy status to penicillin; Z79.899 Other long term (current) drug therapy; J44.9 Chronic obstructive pulmonary disease, unspecified; F17.210 Nicotine dependence, cigarettes, uncomplicated
CPT/HCPCS: 43239; 45385; 88305; J1596

== ENCOUNTER 2024-08-02 09:57 | Outpatient (RCR) | payer OTHER | END 2024-08-05 | LOC: M OUTALCOH 09:57 | PROVIDERS: ATTEND Psychiatry & Neurology Psychiatry | DX: F10.20 Alcohol dependence, uncomplicated (principal); Z72.0 Tobacco use ==

== ENCOUNTER → 2024-08-19 | Outpatient (CLI) | payer OTHER | LOC: M WHC 09:58 | PROVIDERS: ATTEND Nurse Practitioner Family | DX: Z12.31 Encounter for screening mammogram for malignant neoplasm of breast (principal); R92.333 Mammographic heterogeneous density, bilateral breasts; R92.8 Other abnormal and inconclusive findings on diagnostic imaging of breast ==

== ENCOUNTER → 2024-08-27 | Outpatient (CLI) | payer OTHER | LOC: M WHC 13:28 | PROVIDERS: ATTEND Nurse Practitioner Family | DX: C50.919 Malignant neoplasm of unspecified site of unspecified female breast (principal) ==

== ENCOUNTER → 2024-08-29 | Outpatient (CLI) | payer OTHER ==
[~2024-08-29] MED LIST changes: +KETO120S5 TOP; -KETO2SHA8 TOP
[2024-08-29 13:36] LABS: BASO # 0.1 10^3/uL (0.0-0.2); BASO % 0.7 % (0.0-1.0); EOS # 0.5 10^3/uL (0.0-0.5); EOS % 3.5 % (0.0-3.0); HEMATOCRIT 40.8 % (36.0-47.0); HEMOGLOBIN 13.3 g/dl (12.0-15.5); LYMPH # 3.7 10^3/uL (1.5-5.0); LYMPH % 27.8 % (24.0-44.0); MEAN CORPUSCULAR HGB CONC 32.6 g/dl (32.0-36.5); MEAN CORPUSCULAR VOLUME 85.9 fl (80.0-96.0); MONO # 0.8 10^3/uL (0.0-0.8); NEUTROPHILS # 8.1 10^3/uL (1.5-8.5); NEUTROPHILS % 61.7 % (36.0-66.0); PLATELET COUNT, AUTOMATED 330 10^3/uL (150-450); RED BLOOD COUNT 4.75 10^6/uL (4.00-5.40); WHITE BLOOD COUNT 13.1 10^3/uL (4.0-10.0)
[2024-08-29 14:07] LABS: IRON (FE) 58 UG/DL (50-170); PERCENT SATURATION 16.2 % (13.2-45.0); RHEUMATOID FACTOR QUANT 17.7 IU/ML (<14); TOTAL IRON BINDING CAPACITY 359 UG/DL (250-425)
[2024-08-29 14:08] LABS: ALBUMIN 3.9 G/DL (3.2-5.2); ALKALINE PHOSPHATASE 94 U/L (35-104); ALT/SGPT 20 U/L (7.0-40); AST/SGOT 14 U/L (<34); BILIRUBIN,TOTAL 0.3 MG/DL (0.3-1.2); BLOOD UREA NITROGEN 22 MG/DL (9-23); CALCIUM LEVEL 9.5 MG/DL (8.5-10.1); CARBON DIOXIDE LEVEL 27 MMOL/L (20-31); CHLORIDE LEVEL 106 MMOL/L (98-107); CHOLESTEROL LEVEL 139 MG/DL (<200); CHOLESTEROL RISK RATIO 3.16 (<5); CREATININE FOR GFR 0.55 MG/DL (0.55-1.30); FOLATE > 24.00 NG/ML (>5.4); GLOMERULAR FILTRATION RATE > 90.0 (>51); GLUCOSE, FASTING 105 MG/DL (60-100); HDL CHOLESTEROL 43.9 MG/DL (>40); LDL CHOLESTEROL 41.7 MG/DL (<100); MAGNESIUM LEVEL 1.9 MG/DL (1.8-2.4); NON-HDL-C 95.1 MG/DL; POTASSIUM SERUM 4.4 MMOL/L (3.5-5.1); SODIUM LEVEL 138 MMOL/L (136-145); TRIGLYCERIDES LEVEL 267 MG/DL (<150); VITAMIN B12 LEVEL 399 PG/ML (211-911)
[2024-08-29 14:59] LABS: ERYTHROCYTE SEDIMENTATION RATE 36 mm/hr (0-30)
[2024-08-29 15:08] LABS: URIC ACID 5.3 MG/DL (3.1-7.8)
[2024-08-29 15:10] LABS: C REACTIVE PROTEIN QUANTITATIV < 0.50 MG/DL (<1.0)
[2024-08-31 16:17] LABS: HPV APTIMA Not Detected (Not Detected)
[2024-09-03 10:32] LABS: ANA PATTERN Nuclear, Speckled (NEGATIVE); ANA SCREEN, IFA POSITIVE (NEGATIVE)
== END ==
LOC: M PLALAB 11:53
PROVIDERS: ATTEND Nurse Practitioner Family
DX: E83.42 Hypomagnesemia (principal); Z12.4 Encounter for screening for malignant neoplasm of cervix; I10 Essential (primary) hypertension; D50.9 Iron deficiency anemia, unspecified; E53.8 Deficiency of other specified B group vitamins; E78.5 Hyperlipidemia, unspecified; M25.50 Pain in unspecified joint; N95.2 Postmenopausal atrophic vaginitis

== ENCOUNTER → 2024-08-30 | Outpatient (CLI) | payer OTHER | LOC: M PLALAB 12:49 | PROVIDERS: ATTEND Nurse Practitioner Family | DX: M25.50 Pain in unspecified joint (principal); E55.9 Vitamin D deficiency, unspecified; D50.9 Iron deficiency anemia, unspecified ==

== ENCOUNTER → 2024-09-04 | Outpatient (RCR) | payer OTHER | LOC: M OUTALCOH 08-07 16:00 | PROVIDERS: ATTEND Psychiatry & Neurology Psychiatry | DX: F10.20 Alcohol dependence, uncomplicated (principal); Z72.0 Tobacco use ==

== ENCOUNTER 2024-11-22 10:00 | Outpatient (RCR) | payer OTHER | END 2024-12-05 | LOC: M OUTALCOH 10:00 | PROVIDERS: ATTEND Psychiatry & Neurology Psychiatry | DX: F10.20 Alcohol dependence, uncomplicated (principal); Z72.0 Tobacco use ==

== ENCOUNTER 2024-12-13 09:58 | Outpatient (RCR) | payer OTHER | END 2025-01-05 | LOC: M OUTALCOH 09:58 | PROVIDERS: ATTEND Psychiatry & Neurology Psychiatry | DX: F10.20 Alcohol dependence, uncomplicated (principal); Z72.0 Tobacco use ==

== ENCOUNTER → 2025-01-01 | Outpatient (CLI) | payer OTHER, MEDICAID ==
[2025-01-01 11:34] LABS: BASO # 0.1 10^3/uL (0.0-0.2); BASO % 0.8 % (0.0-1.0); EOS # 0.2 10^3/uL (0.0-0.5); EOS % 1.9 % (0.0-3.0); LYMPH # 3.2 10^3/uL (1.5-5.0); LYMPH % 33.0 % (24.0-44.0); MONO # 0.6 10^3/uL (0.0-0.8); MONO % 5.8 % (2.0-8.0); NEUTROPHILS # 5.6 10^3/uL (1.5-8.5); NEUTROPHILS % 58.3 % (36.0-66.0); PLATELET COUNT, AUTOMATED 288 10^3/uL (150-450)
[2025-01-01 12:12] LABS: ALT/SGPT 22 U/L (7.0-40); AST/SGOT 21 U/L (<34); CALCIUM LEVEL 10.0 MG/DL (8.5-10.1); CARBON DIOXIDE LEVEL 29 MMOL/L (20-31); CHLORIDE LEVEL 104 MMOL/L (98-107); CHOLESTEROL LEVEL 158 MG/DL (<200); CHOLESTEROL RISK RATIO 3.47 (<5); CREATININE FOR GFR 0.58 MG/DL (0.55-1.30); GLOMERULAR FILTRATION RATE > 90.0 (>51); IRON (FE) 42 UG/DL (50-170); LDL CHOLESTEROL 73.5 MG/DL (<100); MAGNESIUM LEVEL 2.0 MG/DL (1.8-2.4); NON-HDL-C 112.5 MG/DL; POTASSIUM SERUM 4.0 MMOL/L (3.5-5.1); RHEUMATOID FACTOR QUANT 14.1 IU/ML (<14); SODIUM LEVEL 142 MMOL/L (136-145); TRIGLYCERIDES LEVEL 195 MG/DL (<150)
[2025-01-01 12:14] LABS: VITAMIN B12 LEVEL 564 PG/ML (211-911)
[2025-01-02 11:32] LABS: ALPHA 1 ANTITRYPSIN 192 mg/dL (83-199)
[2025-01-03 14:32] LABS: ANTI-MITOCHONDRIAL ANTIBODY NEGATIVE (NEGATIVE)
== END ==
LOC: M LAB 09:20
PROVIDERS: ATTEND Nurse Practitioner Family
DX: K70.9 Alcoholic liver disease, unspecified (principal); E83.42 Hypomagnesemia

== ENCOUNTER 2025-02-07 09:53 | Outpatient (RCR) | payer OTHER | END 2025-03-07 | LOC: M OUTALCOH 09:53 | PROVIDERS: ATTEND Psychiatry & Neurology Psychiatry | DX: F10.20 Alcohol dependence, uncomplicated (principal); Z72.0 Tobacco use ==

== ENCOUNTER → 2025-02-11 | Outpatient (CLI) | payer OTHER | LOC: M RAD 07:07 | PROVIDERS: ATTEND Nurse Practitioner Family | DX: Z12.2 Encounter for screening for malignant neoplasm of respiratory organs (principal); F17.210 Nicotine dependence, cigarettes, uncomplicated; R91.8 Other nonspecific abnormal finding of lung field ==

== ENCOUNTER → 2025-02-20 | Outpatient (CLI) | payer OTHER | LOC: M WHC 10:09 | PROVIDERS: ATTEND Nurse Practitioner Family | DX: Z12.31 Encounter for screening mammogram for malignant neoplasm of breast (principal) ==

== ENCOUNTER 2025-03-14 09:39 | Outpatient (RCR) | payer OTHER | END 2025-04-06 | LOC: M OUTALCOH 09:39 | PROVIDERS: ATTEND Psychiatry & Neurology Psychiatry | DX: F10.20 Alcohol dependence, uncomplicated (principal); Z72.0 Tobacco use ==

== ENCOUNTER 2025-04-18 08:55 | Outpatient (RCR) | payer OTHER | END 2025-05-07 | LOC: M OUTALCOH 08:55 | PROVIDERS: ATTEND Psychiatry & Neurology Psychiatry | DX: F10.20 Alcohol dependence, uncomplicated (principal); Z72.0 Tobacco use ==